=== PATIENT | male | born 1965 | race African-American/Black ===

== ENCOUNTER 2017-09-01 12:16 | Inpatient (IN) | payer OTHER ==
[2017-09-01 13:31] VITALS: BMI 41.8
--- NOTE | 2017-09-01 18:33 | HP ---
CIWA Score - CIWA Score Nausea/Vomitin-Mild Nausea/No Vomiting Muscle Tremors: 2 Anxiety: 2 Agitation: 2 Paroxysmal Sweats: 1-Minimal Palms Moist Orientation: 1-Uncertain about Date Tacttile Disturbances: 0-None Auditory Disturbances: 0-None Visual Disturbances: 0-None Headache: 3-Moderate CIWA-Ar Total Score: 12 Admission ROS S - HPI Chief Complaint: "I feel shaky, irritable, and I got the chills" Xanax withdrawal symptoms Allergies/Adverse Reactions: Allergies Allergy/AdvReac Type Severity Reaction Status Date / Time No Known Allergies Allergy Verified 09/01/17 17:15 History of Present Illness: 52 yo male with hx of xanax dependence is here seeking detox. Currently in in [facility] at [facility] on methadone 90 mg qd, last medicated today. PMHX: DM II on oral agents, hyperlipidemia, HTN, anxiety and insomnia. Longest period of sobriety 16 months. Last detox over 10 yeas ago at [facility]. Denies suicidal / homicidal ideation or suicide attempts. Denies hx of seizures or blackouts. Exam Limitations: No Limitations - Ebola screening Have you traveled outside of the country in the last 21 days: No Have you had contact with anyone from an Ebola affected area: No Have you been sick,other than usual withdrawal symptoms: No Do you have a fever: No - Review of Systems Constitutional: Chills, Loss of Appetite, Changes in sleep EENT: reports: Blurred Vision (needs precription glasses) Respiratory: reports: No Symptoms reported Cardiac: reports: No Symptoms Reported GI: reports: Nausea, Poor Fluid Intake : reports: No Symptoms Reported Musculoskeletal: reports: No Symptoms Reported Integumentary: reports: No Symptoms Reported Neuro: reports: Headache Endocrine: reports: Increased Thirst Hematology: reports: No Symptoms Reported Psychiatric: reports: Orientated x3, Anxious Other Systems: Reviewed and Negative Patient History - Patient Medical History Hx Anemia: No Hx Asthma: No Hx Chronic Obstructive Pulmonary Disease (COPD): No Hx Cancer: No Hx Cardiac Disorders: No Hx Congestive Heart Failure: No Hx Hypertension: Yes Hx Hypercholesterolemia: Yes Hx Pacemaker: No HX Cerebrovascular Accident: No Hx Seizures: No Hx Diabetes: Yes (on Metformin) Hx Gastrointestinal Disorders: No Hx Liver Disease: No Hx Genitourinary Disorders: No Hx Sexually Transmitted Disorders: No Hx Renal Disease (ESRD): No Hx Thyroid Disease: No Hx Human Immunodeficiency Virus (HIV): No (negative, last tested August 2016) Hx Hepatitis C: No Hx Depression: Yes Hx Suicide Attempt: No Hx Bipolar Disorder: No Hx Schizophrenia: No - Patient Surgical History Past Surgical History: No Hx Neurologic Surgery: No Hx Cataract Extraction: No Hx Cardiac Surgery: No Hx Lung Surgery: No Hx Breast Surgery: No Hx Breast Biopsy: No Hx Abdominal Surgery: No Hx Appendectomy: No Hx Cholecystectomy: No Hx Genitourinary Surgery: No Hx Section: No Hx Orthopedic Surgery: No Anesthesia Reaction: No - PPD History Previous Implant?: Yes Documented Results: Negative w/o proof PPD to be Administered?: Yes - Reproductive History Patient is a Female of Child Bearing Age (11 -55 yrs old): No - Smoking Cessation Smoking history: Current every day smoker Have you smoked in the past 12 months: Yes Aproximately how many cigarettes per day: 3 Hx Chewing Tobacco Use: No Initiated information on smoking cessation: Yes 'Breaking Loose' booklet given: 09/01/17 - Substance & Tx. History Hx Alcohol Use: No Hx Substance Use: Yes Substance Use Type: Tranquilizers Hx Substance Use Treatment: Yes ([facility] 10 years ago ) - Substances Abused Alprazolam (Xanax) Route: Oral Frequency: Daily Amount used: 8mg Age of first use: 50 Date of Last Use: 08/31/17 Family Disease History - Family Disease History Family Disease History: Diabetes: Mother (alive, Gallstones), Other: Father ( , [place], alcoholism ), Mother Admission Physical Exam S - Vital Signs Vital Signs: Vital Signs - 24 hr 09/01/17 13:29 Temperature 98.1 F Pulse Rate 81 Respiratory 20 Rate Blood Pressure 131/62 - Physical General Appearance: Yes: Appropriately Dressed, Obese, Anxious HEENTM: Yes: EOMI, Hearing grossly Normal, Normal ENT Inspection, Pharynx Normal , Tm's normal, Rhinorrhea, Other (chelithis) Respiratory: Yes: Lungs Clear, Normal Breath Sounds, No Respiratory Distress, No Accessory Muscle Use Neck: Yes: No masses,lesions,Nodules, Trachea in good position Breast: Yes: Breast Exam Deferred Cardiology: Yes: Regular Rhythm, Regular Rate Abdominal: Yes: Normal Bowel Sounds, Non Tender, Soft, Protuberent Genitourinary: Yes: Within Normal Limits Back: Yes: Normal Inspection Musculoskeletal: Yes: full range of Motion, Gait Steady, Pelvis Stable Extremities: Yes: Normal Capillary Refill, Normal Inspection, Normal Range of Motion, Non-Tender Neurological: Yes: supervisor tumblers II-XII NML intact, Fully Oriented, Alert, Motor Strength 5/5, Depressed Affect Integumentary: Yes: Normal Color, Dry, Warm Lymphatic: Yes: Within Normal Limits - Diagnostic (1) Methadone maintenance therapy patient Current Visit: Yes Status: Acute (2) Hypertension Current Visit: Yes Status: Chronic Qualifiers: Hypertension type: essential hypertension Qualified Code(s): I10 - Essential (primary) hypertension (3) Diabetes mellitus type 2 in obese Current Visit: Yes Status: Chronic (4) Sedative, hypnotic or anxiolytic dependence with withdrawal, unspecified Current Visit: Yes Status: Acute (5) Hyperlipidemia Current Visit: Yes Status: Acute (6) Morbid obesity with BMI of 40.0-44.9, adult Current Visit: Yes Status: Acute (7) Anxious mood Current Visit: Yes Status: Acute (8) Sleep difficulties Current Visit: Yes Status: Acute Cleared for Admission [facility] - Detox or Rehab [facility] Level of Care: Medically Managed Detox Regimen/Protocol: Valium [facility] Breath Alcohol Content Breath Alcohol Content: 0 Urine Drug Screen - Results Drug Screen Negative: No Urine Drug Screen Results: BZO-Benzodiazepines, MTD-Methadone, TCA-Tricyclic Antidepress
[2017-09-01] MEDS ORDERED: MAGNESIUM CITRATE 300 ML BOTTLE PO PRN (18:38)
[2017-09-01] MEDS ORDERED: MAGNESIUM HYDROX 2400MG/30ML ORAL SUSPENSION 30 ML CUP PO PRN (18:38)
[2017-09-01] MEDS ORDERED: NICOTINE POLACRILEX 2 MG GUM BUC PRN (18:38)
[2017-09-01] MEDS ORDERED: ACETAMINOPHEN 325 MG TABLET (FP) PO PRN (18:38)
[2017-09-01] MEDS ORDERED: hydrOXYzine PAMOATE 50 MG CAPSULE (FP) PO PRN (18:38)
[2017-09-01] MEDS ORDERED: guaiFENesin/D-METHORPHAN HB 10 ML UNIT-DOSE CUPS PO PRN (18:38)
[2017-09-01] MEDS ORDERED: MENTHOL/PHENOL 1 EACH UD MM PRN (18:38)
[2017-09-01] MEDS ORDERED: IBUPROFEN 400 MG TABLET (FP) PO PRN (18:38)
[2017-09-01] MEDS ORDERED: diazePAM 5 MG TABLET PO ONE (18:38)
[2017-09-01] MEDS ORDERED: P-EPHED 60MG/TRIPROLIDI 2.5MG TABLET PO PRN (18:38)
[2017-09-01] MEDS ORDERED: PATIENT'S OWN MEDICATION (NON-FORMULARY) (Atorvastatin Ca [Lipitor] 40 MG) PO SCH (22:00)
[2017-09-01] MEDS ORDERED: MELATONIN 5 MG TABLETS PO PRN (22:00)
[2017-09-01] MEDS: diazePAM 5 MG TABLET PO SCH (22:37)
[2017-09-01] MEDS: THIAMINE HCL 100 MG TABLET (FP) PO SCH (22:37)
[2017-09-01 23:11] LABS: URINE APPEARANCE CLEAR; URINE BILIRUBIN NEGATIVE (<2.0 mg/dL); URINE BLOOD NEGATIVE (NEGATIVE); URINE COLOR YELLOW; URINE GLUCOSE (UA) NEGATIVE (NEGATIVE); URINE KETONE NEGATIVE (NEGATIVE); URINE LEUK ESTERASE NEGATIVE (NEGATIVE); URINE NITRITE NEGATIVE (NEGATIVE); URINE PROTEIN NEGATIVE (NEGATIVE); URINE UROBILINOGEN NEGATIVE mg/dL (0.2-1.0)
[2017-09-02] MEDS: diazePAM 5 MG TABLET PO SCH ×3 (05:39→22:16)
[2017-09-02] MEDS: INSULIN SLIDING SCALE (NOVOLOG) 1 VIAL SQ SCH ×2 (07:51→16:22)
[2017-09-02] MEDS ORDERED: METHADONE HCL 10 MG TABLET PO SCH (09:00)
[2017-09-02] MEDS: PRENATAL VITAMINS W/ FOLIC ACID TABLET (FP) PO SCH (09:52)
[2017-09-02] MEDS: ASPIRIN 81 MG CHEWABLE TABLETS PO SCH (09:53)
--- NOTE | 2017-09-02 10:25 | CONSULT ---
[facility] Psychiatric Consult - Data Date of interview: 09/02/17 Admission source: [facility] Identifying data: First admission to [facility] for this 52 y/o AA male seeking detox treatment on for xanax and opioid dependence.Patient is single,a father of three,domiciled,unemployed and supported on Public Assistance. Substance Abuse History: Confirmed by patient in this interview.Details in current [facility] report : Smoking history: Current every day smoker. Have you smoked in the past 12 months: Yes. Aproximately how many cigarettes per day: 3. Hx Chewing Tobacco Use: No. Initiated information on smoking cessation: Yes. 'Breaking Loose' booklet given: 09/01/17. - Substance & Tx. History. Hx Alcohol Use: No. Hx Substance Use: Yes. Substance Use Type: Tranquilizers. Hx Substance Use Treatment: Yes ([facility] 10 years ago ). - Substances Abused. Alprazolam (Xanax). Route: Oral. Frequency: Daily. Amount used: 8mg. Age of first use: 50. Date of Last Use: 08/31/17 Medical History: GERD,diabetes mellitushypercholesterolemia and hypertension. Psychiatric History: Patient denies history of psychiatric illness.No reported history of suicide attempts. Physical/Sexual Abuse/Trauma History: Patient denies. Additional Comment: Urine Drug Screen Results: BZO-Benzodiazepines, MTD- Methadone, TCA-Tricyclic Antidepressant.Noted. Mental Status Exam - Mental Status Exam Alert and Oriented to: Time, Place, Person Cognitive Function: Good Patient Appearance: Well Groomed Mood: Hopeful Affect: Appropriate Speech Pattern: Clear, Appropriate Voice Loudness: Normal Thought Process: Intact, Goal Oriented Thought Disorder: Not Present Hallucinations: Denies Suicidal Ideation: Denies Homicidal Ideation: Denies Insight/Judgement: Poor Sleep: Poorly, Difficulty falling asleep Appetite: Good Muscle strength/Tone: Normal Gait/Station: Normal Psychiatric Findings - Problem List ([place] 1, 2,3) (1) Sedative, hypnotic or anxiolytic dependence with withdrawal, unspecified Current Visit: Yes Status: Acute (2) Opioid dependence on agonist therapy Current Visit: Yes Status: Acute (3) Nicotine dependence Current Visit: Yes Status: Acute - Initial Treatment Plan Initial Treatment Plan: Psychoeducation.Detoxification in progress.Sleep hygiene.Ambien 5 mg po hs prn.Side effects/benefits discussed with patient.Agrees with careplan.Observation.
[2017-09-02 11:29] LABS: HEMATOCRIT 38.3 % (35.4-49); HEMOGLOBIN 12.8 GM/dL (11.7-16.9); MCH 30.8 pg (25.7-33.7); MCHC 33.5 g/dl (32.0-35.9); MEAN CELL VOLUME 91.8 fl (80-96); MEAN PLT VOLUME 8.6 fl (7.5-11.1); PLATELET COUNT 290 K/MM3 (134-434); RBC 4.17 M/mm3 (4.00-5.60); RDW 15.3 % (11.9-15.9)
[2017-09-02] MEDS: diazePAM 5 MG TABLET PO PRN (11:35)
[2017-09-02 12:15] LABS: ALBUMIN 3.7 g/dl (3.4-5.0); ANION GAP 3 (8-16); BLOOD UREA NITROGEN 19 mg/dL (7-18); CALCIUM 9.3 mg/dL (8.5-10.1); CHLORIDE 98 mmol/L (98-107); CO2 34 mmol/L (21-32); GLUCOSE,RANDOM 156 mg/dL (74-106); POTASSIUM 3.7 mmol/L (3.5-5.1); SGOT/AST 14 U/L (15-37); SGPT/ALT 28 U/L (12-78); SODIUM 135 mmol/L (136-145)
[2017-09-02 12:17] LABS: ALK PHOS 100 U/L (45-117); BILIRUBIN,TOTAL 0.4 mg/dL (0.2-1.0); TOT PROT 7.9 g/dl (6.4-8.2)
[2017-09-02] MEDS: LISINOPRIL 5 MG TABLET (FP) PO SCH (13:58)
[2017-09-02] MEDS: TOLNAFTATE 1% CREAM 15 GM TUBE TP SCH ×2 (13:58→22:17)
[2017-09-02] MEDS: metFORMIN HCL 500 MG TABLET (FP) PO SCH ×2 (16:20→16:21)
[2017-09-02] MEDS: MAG HYDROX/AL HYDROX/SIMETH 30 ML UNIT-DOSE CUP PO PRN (16:43)
--- NOTE | 2017-09-02 17:08 | PN ---
[facility] CIWA - CIWA Score Nausea/Vomitin-No Nausea/No Vomiting Muscle Tremors: 2 Anxiety: 4-Mod. Anxious/Guarded Agitation: 3 Paroxysmal Sweats: 3 Orientation: 0-Oriented Tacttile Disturbances: 2-Mild Itch/Numbness/Burn Auditory Disturbances: 0-None Visual Disturbances: 0-None Headache: 0-None Present CIWA-Ar Total Score: 14 S Progress Note (SOAP) Subjective: Anxious, Sweating, Stomach Cramping, Tremors. Objective: PATIENT A & O X 3, OBSERVED AMBULATING ON UNIT. NO ACUTE DISTRESS. 09/02/17 17:09 Vital Signs Temperature 97.2 F L 09/02/17 14:13 Pulse Rate 69 09/02/17 14:13 Respiratory Rate 18 09/02/17 14:13 Blood Pressure 106/76 09/02/17 14:13 O2 Sat by Pulse Oximetry (%) Laboratory Tests 09/01/17 09/01/17 09/02/17 17:20 18:45 05:40 WBC RBC Hgb Hct MCV MCH MCHC RDW Plt Count MPV Sodium Potassium Chloride Carbon Dioxide Anion Gap BUN Creatinine Creat Clearance w eGFR POC Glucometer 126 108 Random Glucose Calcium Total Bilirubin AST ALT Alkaline Phosphatase Total Protein Albumin Urine Color Yellow Urine Appearance Clear Urine pH 5.0 Ur Specific [place] 1.023 Urine Protein Negative Urine Glucose (UA) Negative Urine Ketones Negative Urine Blood Negative Urine Nitrite Negative Urine Bilirubin Negative Urine Urobilinogen Negative Ur Leukocyte Esterase Negative RPR Titer HIV 1&2 Antibody Screen HIV P24 Antigen 09/02/17 09/02/17 09/02/17 08:00 08:00 08:00 WBC 9.0 RBC 4.17 Hgb 12.8 Hct 38.3 MCV 91.8 MCH 30.8 MCHC 33.5 RDW 15.3 Plt Count 290 MPV 8.6 Sodium 135 L Potassium 3.7 Chloride 98 Carbon Dioxide 34 H Anion Gap 3 L BUN 19 H Creatinine 1.0 Creat Clearance w eGFR > 60 POC Glucometer Random Glucose 156 H D Calcium 9.3 Total Bilirubin 0.4 D AST 14 L D ALT 28 Alkaline Phosphatase 100 Total Protein 7.9 Albumin 3.7 Urine Color Urine Appearance Urine pH Ur Specific [place] Urine Protein Urine Glucose (UA) Urine Ketones Urine Blood Urine Nitrite Urine Bilirubin Urine Urobilinogen Ur Leukocyte Esterase RPR Titer Nonreactive HIV 1&2 Antibody Screen HIV P24 Antigen 09/02/17 09/02/17 08:00 16:17 WBC RBC Hgb Hct MCV MCH MCHC RDW Plt Count MPV Sodium Potassium Chloride Carbon Dioxide Anion Gap BUN Creatinine Creat Clearance w eGFR POC Glucometer 143 Random Glucose Calcium Total Bilirubin AST ALT Alkaline Phosphatase Total Protein Albumin Urine Color Urine Appearance Urine pH Ur Specific [place] Urine Protein Urine Glucose (UA) Urine Ketones Urine Blood Urine Nitrite Urine Bilirubin Urine Urobilinogen Ur Leukocyte Esterase RPR Titer HIV 1&2 Antibody Screen Negative HIV P24 Antigen Negative LABS NOTED. Assessment: 09/02/17 17:09 WITHDRAWAL SYMPTOMS. Plan: CONTINUE DETOX. INCREASE DAILY PO FLUID INTAKE.
--- NOTE | 2017-09-02 18:27 | EKG ---
Test Reason : Blood Pressure : / mmHG Vent. Rate : 072 BPM Atrial Rate : 072 BPM P-R Int : 156 ms QRS Dur : 088 ms QT Int : 484 ms P-R-T Axes : 073 057 026 degrees QTc Int : 529 ms NORMAL SINUS RHYTHM PROLONGED QT NONSPECIFIC ST ABNORMALITY ABNORMAL ECG NO PREVIOUS ECGS AVAILABLE Confirmed by MD YONIS, ERIKA ([id number]) on 09/02/2017 6:26:29 PM Referred By: Confirmed By:ERIKA SOMERS MD
[2017-09-02] MEDS: THIAMINE HCL 100 MG TABLET (FP) PO SCH (22:16)
[2017-09-02] MEDS: ZOLPIDEM TARTRATE 5 MG TABLET PO PRN (22:16)
[2017-09-02] MEDS: ATORVASTATIN CA 40 MG TABLET (FP) PO SCH (22:17)
[2017-09-03] MEDS ORDERED: METHADONE HCL 40 MG DISPERSABLE TABLET ONE (05:15)
[2017-09-03] MEDS ORDERED: METHADONE HCL 10 MG TABLET ONE (05:15)
[2017-09-03] MEDS: diazePAM 5 MG TABLET PO PRN ×2 (05:40→16:32)
[2017-09-03] MEDS: METHADONE 80 MG, METHADONE 10 MG PO SCH (05:41)
[2017-09-03] MEDS: INSULIN SLIDING SCALE (NOVOLOG) 1 VIAL SQ SCH ×2 (06:22→16:33)
[2017-09-03] MEDS: metFORMIN HCL 500 MG TABLET (FP) PO SCH ×2 (07:54→16:32)
[2017-09-03] MEDS: ASPIRIN 81 MG CHEWABLE TABLETS PO SCH (10:06)
[2017-09-03] MEDS: PRENATAL VITAMINS W/ FOLIC ACID TABLET (FP) PO SCH (10:06)
[2017-09-03] MEDS: TOLNAFTATE 1% CREAM 15 GM TUBE TP SCH ×2 (10:06→22:00)
[2017-09-03] MEDS: LISINOPRIL 5 MG TABLET (FP) PO SCH (10:07)
[2017-09-03] MEDS: diazePAM 5 MG TABLET PO SCH ×2 (10:07→22:00)
--- NOTE | 2017-09-03 11:38 | PN ---
S CIWA - CIWA Score Nausea/Vomitin-No Nausea/No Vomiting Muscle Tremors: 3 Anxiety: 4-Mod. Anxious/Guarded Agitation: 4-Moderately Restless Paroxysmal Sweats: 3 Orientation: 0-Oriented Tacttile Disturbances: 0-None Auditory Disturbances: 0-None Visual Disturbances: 0-None Headache: 0-None Present CIWA-Ar Total Score: 14 BHS Progress Note (SOAP) Subjective: agitation sweats shakes irritable Objective: 09/03/17 11:37 Vital Signs Temperature 97.2 F L 09/03/17 10:59 Pulse Rate 70 09/03/17 10:59 Respiratory Rate 18 09/03/17 10:59 Blood Pressure 110/57 09/03/17 10:59 O2 Sat by Pulse Oximetry (%) Laboratory Tests 09/01/17 09/01/17 09/02/17 17:20 18:45 05:40 WBC RBC Hgb Hct MCV MCH MCHC RDW Plt Count MPV Sodium Potassium Chloride Carbon Dioxide Anion Gap BUN Creatinine Creat Clearance w eGFR POC Glucometer 126 108 Random Glucose Calcium Total Bilirubin AST ALT Alkaline Phosphatase Total Protein Albumin Urine Color Yellow Urine Appearance Clear Urine pH 5.0 Ur Specific [place] 1.023 Urine Protein Negative Urine Glucose (UA) Negative Urine Ketones Negative Urine Blood Negative Urine Nitrite Negative Urine Bilirubin Negative Urine Urobilinogen Negative Ur Leukocyte Esterase Negative RPR Titer HIV 1&2 Antibody Screen HIV P24 Antigen 09/02/17 09/02/17 09/02/17 08:00 08:00 08:00 WBC 9.0 RBC 4.17 Hgb 12.8 Hct 38.3 MCV 91.8 MCH 30.8 MCHC 33.5 RDW 15.3 Plt Count 290 MPV 8.6 Sodium 135 L Potassium 3.7 Chloride 98 Carbon Dioxide 34 H Anion Gap 3 L BUN 19 H Creatinine 1.0 Creat Clearance w eGFR > 60 POC Glucometer Random Glucose 156 H D Calcium 9.3 Total Bilirubin 0.4 D AST 14 L D ALT 28 Alkaline Phosphatase 100 Total Protein 7.9 Albumin 3.7 Urine Color Urine Appearance Urine pH Ur Specific [place] Urine Protein Urine Glucose (UA) Urine Ketones Urine Blood Urine Nitrite Urine Bilirubin Urine Urobilinogen Ur Leukocyte Esterase RPR Titer Nonreactive HIV 1&2 Antibody Screen HIV P24 Antigen 03/31/18 03/31/18 04/01/18 08:00 16:17 05:40 WBC RBC Hgb Hct MCV MCH MCHC RDW Plt Count MPV Sodium Potassium Chloride Carbon Dioxide Anion Gap BUN Creatinine Creat Clearance w eGFR POC Glucometer 143 121 Random Glucose Calcium Total Bilirubin AST ALT Alkaline Phosphatase Total Protein Albumin Urine Color Urine Appearance Urine pH Ur Specific [place] Urine Protein Urine Glucose (UA) Urine Ketones Urine Blood Urine Nitrite Urine Bilirubin Urine Urobilinogen Ur Leukocyte Esterase RPR Titer HIV 1&2 Antibody Screen Negative HIV P24 Antigen Negative aaox3 ambulating no acute distress Assessment: 09/03/17 11:38 withdrawal sx Plan: continue detox increase fluids
[2017-09-03] MEDS ORDERED: hydrOXYzine PAMOATE 50 MG CAPSULE (FP) PO PRN (11:39)
[2017-09-03] MEDS ORDERED: AMMONIUM LACTATE 12% LOTION 225 GM BOTTLE TP PRN (14:16)
--- NOTE | 2017-09-03 16:25 | EKG ---
Test Reason : Blood Pressure : / mmHG Vent. Rate : 066 BPM Atrial Rate : 066 BPM P-R Int : 162 ms QRS Dur : 086 ms QT Int : 440 ms P-R-T Axes : 064 056 021 degrees QTc Int : 461 ms NORMAL SINUS RHYTHM NORMAL ECG WHEN COMPARED WITH ECG OF 01-SEP-2017 20:22, QT HAS SHORTENED Confirmed by MD YONIS, ERIKA ([id number]) on 09/03/2017 4:24:48 PM Referred By: Confirmed By:ERIKA SOMERS MD
[2017-09-03] MEDS: THIAMINE HCL 100 MG TABLET (FP) PO SCH (22:00)
[2017-09-03] MEDS: ATORVASTATIN CA 40 MG TABLET (FP) PO SCH (22:00)
[2017-09-03] MEDS: ZOLPIDEM TARTRATE 5 MG TABLET PO PRN (22:00)
[2017-09-04] MEDS ORDERED: METHADONE HCL 10 MG TABLET ONE (04:31)
[2017-09-04] MEDS ORDERED: METHADONE HCL 40 MG DISPERSABLE TABLET ONE (04:32)
[2017-09-04] MEDS: METHADONE 80 MG, METHADONE 10 MG PO SCH (06:01)
[2017-09-04] MEDS: diazePAM 5 MG TABLET PO PRN ×2 (06:01→12:32)
[2017-09-04] MEDS: metFORMIN HCL 500 MG TABLET (FP) PO SCH ×2 (06:01→17:12)
[2017-09-04] MEDS: INSULIN SLIDING SCALE (NOVOLOG) 1 VIAL SQ SCH ×2 (07:03→17:39)
[2017-09-04] MEDS: TOLNAFTATE 1% CREAM 15 GM TUBE TP SCH ×2 (10:04→22:13)
[2017-09-04] MEDS: ASPIRIN 81 MG CHEWABLE TABLETS PO SCH (10:04)
[2017-09-04] MEDS: PRENATAL VITAMINS W/ FOLIC ACID TABLET (FP) PO SCH (10:04)
[2017-09-04] MEDS: RANITIDINE HCL 150 MG TABLET (FP) PO SCH (10:05)
[2017-09-04] MEDS: diazePAM 5 MG TABLET PO SCH ×2 (10:05→22:13)
[2017-09-04] MEDS: BACITRACIN 0.9 GM PACKET TP SCH ×2 (10:05→22:12)
[2017-09-04] MEDS: LISINOPRIL 5 MG TABLET (FP) PO SCH (10:05)
--- NOTE | 2017-09-04 16:04 | PN ---
[facility] Progress Note (SOAP) Subjective: Anxious, Body Aches. Objective: PATIENT A & O X 3, OBSERVED AMBULATING ON UNIT. NO ACUTE DISTRESS. 09/04/17 16:03 Vital Signs Temperature 97.9 F 09/04/17 13:16 Pulse Rate 64 09/04/17 13:16 Respiratory Rate 18 09/04/17 13:16 Blood Pressure 113/74 09/04/17 13:16 O2 Sat by Pulse Oximetry (%) Laboratory Tests 09/01/17 09/01/17 09/02/17 17:20 18:45 05:40 WBC RBC Hgb Hct MCV MCH MCHC RDW Plt Count MPV Sodium Potassium Chloride Carbon Dioxide Anion Gap BUN Creatinine Creat Clearance w eGFR POC Glucometer 126 108 Random Glucose Calcium Total Bilirubin AST ALT Alkaline Phosphatase Total Protein Albumin Urine Color Yellow Urine Appearance Clear Urine pH 5.0 Ur Specific [place] 1.023 Urine Protein Negative Urine Glucose (UA) Negative Urine Ketones Negative Urine Blood Negative Urine Nitrite Negative Urine Bilirubin Negative Urine Urobilinogen Negative Ur Leukocyte Esterase Negative RPR Titer HIV 1&2 Antibody Screen HIV P24 Antigen 09/02/17 09/02/17 09/02/17 08:00 08:00 08:00 WBC 9.0 RBC 4.17 Hgb 12.8 Hct 38.3 MCV 91.8 MCH 30.8 MCHC 33.5 RDW 15.3 Plt Count 290 MPV 8.6 Sodium 135 L Potassium 3.7 Chloride 98 Carbon Dioxide 34 H Anion Gap 3 L BUN 19 H Creatinine 1.0 Creat Clearance w eGFR > 60 POC Glucometer Random Glucose 156 H D Calcium 9.3 Total Bilirubin 0.4 D AST 14 L D ALT 28 Alkaline Phosphatase 100 Total Protein 7.9 Albumin 3.7 Urine Color Urine Appearance Urine pH Ur Specific [place] Urine Protein Urine Glucose (UA) Urine Ketones Urine Blood Urine Nitrite Urine Bilirubin Urine Urobilinogen Ur Leukocyte Esterase RPR Titer Nonreactive HIV 1&2 Antibody Screen HIV P24 Antigen 09/02/17 09/02/17 09/03/17 08:00 16:17 05:40 WBC RBC Hgb Hct MCV MCH MCHC RDW Plt Count MPV Sodium Potassium Chloride Carbon Dioxide Anion Gap BUN Creatinine Creat Clearance w eGFR POC Glucometer 143 121 Random Glucose Calcium Total Bilirubin AST ALT Alkaline Phosphatase Total Protein Albumin Urine Color Urine Appearance Urine pH Ur Specific [place] Urine Protein Urine Glucose (UA) Urine Ketones Urine Blood Urine Nitrite Urine Bilirubin Urine Urobilinogen Ur Leukocyte Esterase RPR Titer HIV 1&2 Antibody Screen Negative HIV P24 Antigen Negative 09/03/17 09/04/17 16:23 06:00 WBC RBC Hgb Hct MCV MCH MCHC RDW Plt Count MPV Sodium Potassium Chloride Carbon Dioxide Anion Gap BUN Creatinine Creat Clearance w eGFR POC Glucometer 138 145 Random Glucose Calcium Total Bilirubin AST ALT Alkaline Phosphatase Total Protein Albumin Urine Color Urine Appearance Urine pH Ur Specific [place] Urine Protein Urine Glucose (UA) Urine Ketones Urine Blood Urine Nitrite Urine Bilirubin Urine Urobilinogen Ur Leukocyte Esterase RPR Titer HIV 1&2 Antibody Screen HIV P24 Antigen LABS NOTED. Assessment: 09/04/17 16:03 WITHDRAWAL SYMPTOMS. Plan: CONTINUE DETOX.
[2017-09-04] MEDS: LOPERAMIDE HCL 2 MG CAPSULE PO PRN ×2 (17:12→23:12)
[2017-09-04] MEDS: MAG HYDROX/AL HYDROX/SIMETH 30 ML UNIT-DOSE CUP PO PRN (19:23)
[2017-09-04] MEDS: ZOLPIDEM TARTRATE 5 MG TABLET PO PRN (22:12)
[2017-09-04] MEDS: ATORVASTATIN CA 40 MG TABLET (FP) PO SCH (22:12)
[2017-09-04] MEDS: THIAMINE HCL 100 MG TABLET (FP) PO SCH (22:12)
[2017-09-05] MEDS ORDERED: METHADONE HCL 10 MG TABLET ONE (04:17)
[2017-09-05] MEDS ORDERED: METHADONE HCL 40 MG DISPERSABLE TABLET ONE (04:18)
[2017-09-05] MEDS: METHADONE 80 MG, METHADONE 10 MG PO SCH (05:12)
[2017-09-05] MEDS: MAG HYDROX/AL HYDROX/SIMETH 30 ML UNIT-DOSE CUP PO PRN (05:16)
[2017-09-05] MEDS: metFORMIN HCL 500 MG TABLET (FP) PO SCH (06:17)
[2017-09-05] MEDS: INSULIN SLIDING SCALE (NOVOLOG) 1 VIAL SQ SCH (07:45)
[2017-09-05] MEDS: LOPERAMIDE HCL 2 MG CAPSULE PO PRN (08:12)
[2017-09-05 09:09] VITALS: BP 125/85; PULSE 66; TEMP 95.3
[2017-09-05] MEDS: PRENATAL VITAMINS W/ FOLIC ACID TABLET (FP) PO SCH (09:19)
[2017-09-05] MEDS: LISINOPRIL 5 MG TABLET (FP) PO SCH (09:19)
[2017-09-05] MEDS: RANITIDINE HCL 150 MG TABLET (FP) PO SCH (09:19)
[2017-09-05] MEDS: BACITRACIN 0.9 GM PACKET TP SCH (09:20)
[2017-09-05] MEDS: TOLNAFTATE 1% CREAM 15 GM TUBE TP SCH (09:20)
[2017-09-05] MEDS: ASPIRIN 81 MG CHEWABLE TABLETS PO SCH (09:20)
[2017-09-05] MEDS ORDERED: DIPHENOXYLATE 2.5/ATROPINE.025 1 COMBO TABLET PO ONE (09:30)
[2017-09-05] MEDS ORDERED: diazePAM 5 MG TABLET PO SCH (10:00)
--- NOTE | 2017-09-05 12:15 | DS ---
[facility] Detox Discharge Summary Admission Date: 09/01/17 Discharge Date: 09/05/17 - History Present History: Sedative Dependence, MMTP Additional Comments: DETOX COMPLETED. ALERT OX 3. NAD. PT TO FOLLOW UP WITH PMD [place] [address] [place] [address] FOR MEDICAL MANAGEMENT. Pertinent Past History: PLEASE SEE DX BELOW - Physical Exam Results Vital Signs: Vital Signs Temperature 95.3 F L 09/05/17 09:09 Pulse Rate 66 09/05/17 09:09 Respiratory Rate 18 09/05/17 09:09 Blood Pressure 125/85 09/05/17 09:09 O2 Sat by Pulse Oximetry (%) Pertinent Admission Physical Exam Findings: WITHDRAWAL SX Laboratory Last Values WBC 9.0 K/mm3 (4.0-10.0) 09/02/17 08:00 RBC 4.17 M/mm3 (4.00-5.60) 09/02/17 08:00 Hgb 12.8 GM/dL (11.7-16.9) 09/02/17 08:00 Hct 38.3 % (35.4-49) 09/02/17 08:00 MCV 91.8 fl (80-96) 09/02/17 08:00 MCH 30.8 pg (25.7-33.7) 09/02/17 08:00 MCHC 33.5 g/dl (32.0-35.9) 09/02/17 08:00 RDW 15.3 % (11.9-15.9) 09/02/17 08:00 Plt Count 290 K/MM3 (134-434) 09/02/17 08:00 MPV 8.6 fl (7.5-11.1) 09/02/17 08:00 Sodium 135 mmol/L (136-145) L 09/02/17 08:00 Potassium 3.7 mmol/L (3.5-5.1) 09/02/17 08:00 Chloride 98 mmol/L (98-107) 09/02/17 08:00 Carbon Dioxide 34 mmol/L (21-32) H 09/02/17 08:00 Anion Gap 3 (8-16) L 09/02/17 08:00 BUN 19 mg/dL (7-18) H 09/02/17 08:00 Creatinine 1.0 mg/dL (0.7-1.3) 09/02/17 08:00 Creat Clearance w eGFR > 60 (>60) 09/02/17 08:00 POC Glucometer 139 UNITS (80-120) 09/05/17 05:11 Random Glucose 156 mg/dL (74-106) H D 09/02/17 08:00 Calcium 9.3 mg/dL (8.5-10.1) 09/02/17 08:00 Total Bilirubin 0.4 mg/dL (0.2-1.0) D 09/02/17 08:00 AST 14 U/L (15-37) L D 09/02/17 08:00 ALT 28 U/L (12-78) 09/02/17 08:00 Alkaline Phosphatase 100 U/L (45-117) 09/02/17 08:00 Total Protein 7.9 g/dl (6.4-8.2) 09/02/17 08:00 Albumin 3.7 g/dl (3.4-5.0) 09/02/17 08:00 Urine Color Yellow 09/01/17 18:45 Urine Appearance Clear 09/01/17 18:45 Urine pH 5.0 (5.0-8.0) 09/01/17 18:45 Ur Specific [place] 1.023 (1.001-1.035) 09/01/17 18:45 Urine Protein Negative (NEGATIVE) 09/01/17 18:45 Urine Glucose (UA) Negative (NEGATIVE) 09/01/17 18:45 Urine Ketones Negative (NEGATIVE) 09/01/17 18:45 Urine Blood Negative (NEGATIVE) 09/01/17 18:45 Urine Nitrite Negative (NEGATIVE) 09/01/17 18:45 Urine Bilirubin Negative (<2.0 mg/dL) 09/01/17 18:45 Urine Urobilinogen Negative mg/dL (0.2-1.0) 09/01/17 18:45 Ur Leukocyte Esterase Negative (NEGATIVE) 09/01/17 18:45 RPR Titer Nonreactive (NONREACTIVE) 09/02/17 08:00 HIV 1&2 Antibody Screen Negative 09/02/17 08:00 HIV P24 Antigen Negative 09/02/17 08:00 - Treatment Hospital Course: Detox Protocol Followed, Detoxed Safely, Responded well, Discharged Condition Good, Rehab Referral Accepted Patient has Accepted a Rehab Referral to: [facility] - Medication Discharge Medications: Ambulatory Orders Aspirin [ASA -] 81 mg PO DAILY 09/01/17 Atorvastatin Ca [Lipitor] 40 mg PO HS 09/01/17 Lisinopril 2.5 mg PO DAILY 09/01/17 Metformin HCl 500 mg PO BID 09/01/17 - Diagnosis (1) Hyperlipidemia Status: Chronic Qualifiers: Hyperlipidemia type: unspecified Qualified Code(s): E78.5 - Hyperlipidemia , unspecified (2) Methadone maintenance therapy patient Status: Chronic (3) Morbid obesity with BMI of 40.0-44.9, adult Status: Chronic (4) Nicotine dependence Status: Acute Qualifiers: Nicotine product type: cigarettes Substance use status: in withdrawal Qualified Code(s): F17.213 - Nicotine dependence, cigarettes, with withdrawal (5) Sedative, hypnotic or anxiolytic dependence with withdrawal, unspecified Status: Acute - AMA Did Patient Leave Against Medical Advice: No
== END 2017-09-05 11:04 | disposition home or self-care (01) | DRG 773 ==
LOC: YASAS 12:16 → Y3N 17:52
PROVIDERS: ADMIT Internal Medicine; ATTEND Internal Medicine
PROC: HZ2ZZZZ Detoxification Services for Substance Abuse Treatment (ICD-10-PCS; principal; 2017-09-01)
DX: F11.20 Opioid dependence, uncomplicated (principal); F13.230 Sedative, hypnotic or anxiolytic dependence with withdrawal, uncomplicated; F17.210 Nicotine dependence, cigarettes, uncomplicated; F32.9 Major depressive disorder, single episode, unspecified; G47.9 Sleep disorder, unspecified; E78.5 Hyperlipidemia, unspecified; E11.9 Type 2 diabetes mellitus without complications; Z79.84 Long term (current) use of oral hypoglycemic drugs; E66.01 Morbid (severe) obesity due to excess calories; Z68.41 Body mass index [BMI] 40.0-44.9, adult
CPT/HCPCS: 36415; 80053; 81003; 82962; 85027; 86593; 87389; 93005; 93010

== ENCOUNTER 2018-09-21 11:20 | Inpatient (IN) | payer OTHER ==
[2018-09-21 12:08] VITALS: BMI 41.3
--- NOTE | 2018-09-21 13:20 | HP ---
CIWA Score Nausea/Vomitin Muscle Tremors: 2 Anxiety: 2 Agitation: 2 Paroxysmal Sweats: 1-Minimal Palms Moist Orientation: 0-Oriented Tacttile Disturbances: 1-Very Mild Itch/Numbness Auditory Disturbances: 1-Very Mild Visual Disturbances: 0-None Headache: 2-Mild CIWA-Ar Total Score: 13 - Admission Criteria OASAS Guidelines: Admission for Medically Managed Detox: Requires at least one of the followin. CIWA greater than 12 2. Seizures within the past 24 hours 3. Delirium tremens within the past 24 hours 4. Hallucinations within the past 24 hours 5. Acute intervention needed for co occurring medical disorder 6. Acute intervention needed for co occurring psychiatric disorder 7. Severe withdrawal that cannot be handled at a lower level of care (continued vomiting, continued diarrhea, abnormal vital signs) requiring intravenous medication and/or fluids 8. Admission ROS [facility] - HPI Chief Complaint: i need help to stop using xanax and klonopin Allergies/Adverse Reactions: Allergies Allergy/AdvReac Type Severity Reaction Status Date / Time No Known Allergies Allergy Verified 09/21/18 11:58 History of Present Illness: this 53 years old male with xanax,klonopin dependence,seeking detox,withdrawal symptom, fail out patient program had previous admission before,last treatment 09/01/17 to 09/05/17 [facility] type 2 dm on metformin hypertension on med nicotine dependence 1 pack/day,requesting gum insomnia longest sobriety 2 years Exam Limitations: No Limitations - Ebola screening Have you traveled outside of the country in the last 21 days: No (N) Have you had contact with anyone from an Ebola affected area: No Do you have a fever: No - Review of Systems Constitutional: Loss of Appetite, Night Sweats, Changes in sleep, Weakness EENT: reports: Nose Congestion Respiratory: reports: No Symptoms reported Cardiac: reports: No Symptoms Reported GI: reports: Nausea, Vomiting, Abdominal cramping Musculoskeletal: reports: Back Pain, Muscle Pain Integumentary: reports: Dryness Endocrine: reports: No Symptoms Reported, Other (type 2 dm) Hematology: reports: No Symptoms Reported Psychiatric: reports: No Sypmtoms Reported, Judgement Intact, Mood/Affect Appropiate, Orientated x3 Other Systems: Reviewed and Negative Patient History - Patient Medical History Hx Anemia: No Hx Asthma: No Hx Chronic Obstructive Pulmonary Disease (COPD): No Hx Cancer: No Hx Cardiac Disorders: No Hx Congestive Heart Failure: No Hx Hypertension: Yes (on med) Hx Hypercholesterolemia: Yes Hx Pacemaker: No HX Cerebrovascular Accident: No Hx Seizures: No Hx Diabetes: Yes (on Metformin) Hx Gastrointestinal Disorders: No Hx Liver Disease: No Hx Genitourinary Disorders: No Hx Sexually Transmitted Disorders: No Hx Renal Disease (ESRD): No Hx Thyroid Disease: No Hx Human Immunodeficiency Virus (HIV): No (negative, last tested August 2016) Hx Hepatitis C: No Hx Depression: Yes (no med) Hx Suicide Attempt: No Hx Bipolar Disorder: No Hx Schizophrenia: No Other Medical History: no sucidal,no homicidal - Patient Surgical History Past Surgical History: No Hx Neurologic Surgery: No Hx Cataract Extraction: No Hx Cardiac Surgery: No Hx Lung Surgery: No Hx Breast Surgery: No Hx Breast Biopsy: No Hx Abdominal Surgery: No Hx Appendectomy: No Hx Cholecystectomy: No Hx Genitourinary Surgery: No Hx Section: No Hx Orthopedic Surgery: No Anesthesia Reaction: No - PPD History Previous Implant?: Yes Documented Results: Negative w/o proof Implanted On Prior R Admission?: Yes Date: 09/03/17 PPD to be Administered?: Yes - Smoking Cessation Smoking history: Current every day smoker Have you smoked in the past 12 months: Yes Aproximately how many cigarettes per day: 20 Hx Chewing Tobacco Use: No Initiated information on smoking cessation: Yes 'Breaking Loose' booklet given: 09/21/18 - Substance & Tx. History Hx Alcohol Use: No Hx Substance Use: Yes Substance Use Type: Tranquilizers Hx Substance Use Treatment: Yes ([facility] 09/01/17 to 09/05/17) - Substances abused Alprazolam (Xanax) Substance route: Oral Frequency: Daily Amount used: 2-3/2MG Age of first use: 49 Date of last use: 09/21/18 Benzodiazepine (Klonopin) Substance route: Oral Frequency: Daily Amount used: 2-3 2MG Age of first use: 49 Date of last use: 09/21/18 Family Disease History - Family Disease History Family Disease History: Diabetes: Mother (alive, Gallstones), Other: Father ( , OR, alcoholism ), Mother Admission Physical Exam [facility] - Vital Signs Vital Signs: Vital Signs - 24 hr 09/21/18 09/21/18 11:59 12:32 Temperature 98.5 F 98.5 F Pulse Rate 71 71 Respiratory 18 18 Rate Blood Pressure 126/79 126/79 - Physical General Appearance: Yes: Moderate Distress, Tremorous, Irritable, Sweating, Anxious HEENTM: Yes: Normal ENT Inspection, JERED, Pharynx Normal Respiratory: Yes: Lungs Clear, Normal Breath Sounds, No Respiratory Distress Neck: Yes: Within Normal Limits, Supple, Trachea in good position Breast: Yes: Within Normal Limits Cardiology: Yes: Within Normal Limits, Regular Rhythm, Regular Rate, S1, S2 Abdominal: Yes: Within Normal Limits, Normal Bowel Sounds, Non Tender, Flat, Soft Genitourinary: Yes: Within Normal Limits Back: Yes: Muscle Spasm Musculoskeletal: Yes: full range of Motion, Back pain, Muscle Pain Extremities: Yes: Tremors Neurological: Yes: barrel marker II-XII NML intact, Fully Oriented, Alert, Motor Strength 5/5 Integumentary: Yes: Dry Lymphatic: Yes: Within Normal Limits - Diagnostic (1) Sedative, hypnotic or anxiolytic dependence with withdrawal, unspecified Current Visit: No Status: Acute (2) Diabetes mellitus type 2 in obese Current Visit: No Status: Chronic (3) Hyperlipidemia Current Visit: No Status: Chronic Qualifiers: Hyperlipidemia type: unspecified Qualified Code(s): E78.5 - Hyperlipidemia , unspecified (4) Hypertension Current Visit: No Status: Chronic Qualifiers: Hypertension type: essential hypertension Qualified Code(s): I10 - Essential (primary) hypertension (5) Methadone maintenance therapy patient Current Visit: No Status: Chronic (6) Insomnia Current Visit: Yes Status: Acute Cleared for Admission [facility] - Detox or Rehab [facility] Level of Care: Medically Managed Detox Regimen/Protocol: Valium Breathalyzer - Breathalyzer Breathalyzer: 0 Urine Drug Screen - Test Device Lot number: [id number] Expiration date: 05/04/19 - Control Is test valid?: Yes - Results Drug screen NEGATIVE: No Urine drug screen results: MTD-Methadone, BZO-Benzodiazepines Inpatient Rehab Admission - Rehab Decision to Admit Inpatient rehab admission?: No
[2018-09-21] MEDS ORDERED: METHOCARBAMOL 500 MG TABLET PO PRN (13:26)
[2018-09-21] MEDS ORDERED: MENTHOL/PHENOL 1 EACH UD MM PRN (13:26)
[2018-09-21] MEDS ORDERED: MAG HYDROX/AL HYDROX/SIMETH 30 ML UNIT-DOSE CUP PO PRN (13:26)
[2018-09-21] MEDS ORDERED: NICOTINE POLACRILEX 2 MG GUM BUC PRN (13:26)
[2018-09-21] MEDS ORDERED: IBUPROFEN 400 MG TABLET (FP) PO PRN (13:26)
[2018-09-21] MEDS ORDERED: BISMUTH SUBSALICYLATE 524 MG/30 ML UD PO PRN (13:26)
[2018-09-21] MEDS ORDERED: MAGNESIUM HYDROX 2400MG/30ML ORAL SUSPENSION 30 ML CUP PO PRN (13:26)
[2018-09-21] MEDS ORDERED: MAGNESIUM CITRATE 300 ML BOTTLE PO PRN (13:26)
[2018-09-21] MEDS ORDERED: ACETAMINOPHEN 325 MG TABLET (FP) PO PRN ×2 (13:26)
[2018-09-21] MEDS: diazePAM 5 MG TABLET PO PRN (15:18)
[2018-09-21 17:16] LABS: HEMATOCRIT 37.8 % (35.4-49); HEMOGLOBIN 12.5 GM/dL (11.7-16.9); MCH 30.4 pg (25.7-33.7); MCHC 33.2 g/dl (32.0-35.9); MEAN CELL VOLUME 91.5 fl (80-96); MEAN PLT VOLUME 8.4 fl (7.5-11.1); PLATELET COUNT 297 K/MM3 (134-434); RBC 4.13 M/mm3 (4.00-5.60); RDW 14.4 % (11.9-15.9); WHITE BLOOD COUNT 9.1 K/mm3 (4.0-10.0)
[2018-09-21 17:28] LABS: ALBUMIN 3.7 g/dl (3.4-5.0); ALK PHOS 90 U/L (45-117); ANION GAP 6 MMOL/L (8-16); BILIRUBIN,TOTAL 0.2 mg/dL (0.2-1); BLOOD UREA NITROGEN 16 mg/dL (7-18); CALCIUM 9.8 mg/dL (8.5-10.1); CHLORIDE 99 mmol/L (98-107); CO2 32 mmol/L (21-32); GLUCOSE,RANDOM 125 mg/dL (74-106); POTASSIUM 3.8 mmol/L (3.5-5.1); SGOT/AST 15 U/L (15-37); SGPT/ALT 25 U/L (13-61); SODIUM 137 mmol/L (136-145); TOT PROT 7.8 g/dl (6.4-8.2)
[2018-09-21] MEDS: metFORMIN HCL 500 MG TABLET (FP) PO SCH (18:03)
[2018-09-21] MEDS: diazePAM 5 MG TABLET PO SCH (22:08)
[2018-09-21] MEDS: MELATONIN 5 MG TABLETS PO PRN (22:08)
[2018-09-21] MEDS: THIAMINE HCL 100 MG TABLET (FP) PO SCH (22:08)
[2018-09-21] MEDS: ATORVASTATIN CA 40 MG TABLET (FP) PO SCH (22:08)
[2018-09-21 23:56] LABS: PH,URINE 5.5 (5.0-8.0); URINE APPEARANCE CLEAR; URINE BILIRUBIN NEGATIVE (NEGATIVE); URINE COLOR YELLOW; URINE GLUCOSE (UA) NEGATIVE (NEGATIVE); URINE KETONE NEGATIVE (NEGATIVE); URINE LEUK ESTERASE NEGATIVE (NEGATIVE); URINE NITRITE NEGATIVE (NEGATIVE); URINE PROTEIN NEGATIVE (NEGATIVE)
[2018-09-22] MEDS ORDERED: METHADONE HCL 10 MG TABLET ONE (04:30)
[2018-09-22] MEDS ORDERED: METHADONE HCL 40 MG DISPERSABLE TABLET ONE (04:31)
[2018-09-22] MEDS: METHADONE 80 MG, METHADONE 10 MG PO SCH (05:11)
[2018-09-22] MEDS: diazePAM 5 MG TABLET PO SCH ×3 (05:12→23:08)
[2018-09-22] MEDS ORDERED: METHADONE HCL 10 MG TABLET PO SCH (06:00)
[2018-09-22] MEDS ORDERED: METHADONE 80 MG, METHADONE 10 MG PO SCH (06:00)
[2018-09-22] MEDS: metFORMIN HCL 500 MG TABLET (FP) PO SCH ×2 (06:50→17:39)
[2018-09-22] MEDS: PRENATAL VITAMINS W/ FOLIC ACID TABLET (FP) PO SCH (10:12)
[2018-09-22] MEDS: ASPIRIN 81 MG CHEWABLE TABLETS PO SCH (10:12)
[2018-09-22] MEDS: LISINOPRIL 5 MG TABLET (FP) PO SCH (10:12)
[2018-09-22] MEDS: BISMUTH SUBSALICYLATE 262 MG/15 ML BTL PO PRN ×2 (10:15→17:40)
[2018-09-22] MEDS: diazePAM 5 MG TABLET PO PRN ×2 (10:36→17:39)
--- NOTE | 2018-09-22 16:58 | PN ---
[facility] CIWA - CIWA Score Nausea/Vomitin-No Nausea/No Vomiting Muscle Tremors: 3 Anxiety: 2 Agitation: 0-Normal Activity Paroxysmal Sweats: 3 Orientation: 0-Oriented Tacttile Disturbances: 0-None Auditory Disturbances: 0-None Visual Disturbances: 0-None Headache: 2-Mild CIWA-Ar Total Score: 10 S Progress Note (SOAP) Subjective: sweats headache tremors irritable Objective: 09/22/18 16:56 Vital Signs 09/22/18 09/22/18 09:57 14:37 Temperature 97.0 F L 98.3 F Pulse Rate 62 67 Respiratory 18 18 Rate Blood Pressure 130/77 119/65 Laboratory Last Values WBC 9.1 K/mm3 (4.0-10.0) 09/21/18 13:20 RBC 4.13 M/mm3 (4.00-5.60) 09/21/18 13:20 Hgb 12.5 GM/dL (11.7-16.9) 09/21/18 13:20 Hct 37.8 % (35.4-49) 09/21/18 13:20 MCV 91.5 fl (80-96) 09/21/18 13:20 MCH 30.4 pg (25.7-33.7) 09/21/18 13:20 MCHC 33.2 g/dl (32.0-35.9) 09/21/18 13:20 RDW 14.4 % (11.9-15.9) 09/21/18 13:20 Plt Count 297 K/MM3 (134-434) D 09/21/18 13:20 MPV 8.4 fl (7.5-11.1) 09/21/18 13:20 Sodium 137 mmol/L (136-145) 09/21/18 13:20 Potassium 3.8 mmol/L (3.5-5.1) 09/21/18 13:20 Chloride 99 mmol/L (98-107) 09/21/18 13:20 Carbon Dioxide 32 mmol/L (21-32) 09/21/18 13:20 Anion Gap 6 MMOL/L (8-16) L 09/21/18 13:20 BUN 16 mg/dL (7-18) 09/21/18 13:20 Creatinine 1.0 mg/dL (0.55-1.3) 09/21/18 13:20 Creat Clearance w eGFR 77.87 (>60) 09/21/18 13:20 POC Glucometer 92 UNITS (80-120) 09/22/18 05:10 Random Glucose 125 mg/dL (74-106) H 09/21/18 13:20 Calcium 9.8 mg/dL (8.5-10.1) 09/21/18 13:20 Total Bilirubin 0.2 mg/dL (0.2-1) 09/21/18 13:20 AST 15 U/L (15-37) 09/21/18 13:20 ALT 25 U/L (13-61) 09/21/18 13:20 Alkaline Phosphatase 90 U/L (45-117) 09/21/18 13:20 Total Protein 7.8 g/dl (6.4-8.2) 09/21/18 13:20 Albumin 3.7 g/dl (3.4-5.0) 09/21/18 13:20 Urine Color Yellow 09/21/18 21:29 Urine Appearance Clear 09/21/18 21:29 Urine pH 5.5 (5.0-8.0) 09/21/18 21:29 Ur Specific Wagner 1.021 (1.010-1.035) 09/21/18 21:29 Urine Protein Negative (NEGATIVE) 09/21/18 21:29 Urine Glucose (UA) Negative (NEGATIVE) 09/21/18 21:29 Urine Ketones Negative (NEGATIVE) 09/21/18 21:29 Urine Blood Negative (NEGATIVE) 09/21/18 21:29 Urine Nitrite Negative (NEGATIVE) 09/21/18 21:29 Urine Bilirubin Negative (NEGATIVE) 09/21/18 21:29 Urine Urobilinogen 1.0 mg/dL (0.2-1.0) 09/21/18 21:29 Ur Leukocyte Esterase Negative (NEGATIVE) 09/21/18 21:29 RPR Titer Nonreactive (NONREACTIVE) 09/21/18 13:20 Labs reviewed Assessment: 09/22/18 16:56 AOX3 no distress EENT: wnl full rom withdrawal signs persists Plan: continue detox increase fluids continue to monitor
[2018-09-22] MEDS: hydrOXYzine PAMOATE 25 MG CAPSULE (FP) PO PRN (23:07)
[2018-09-22] MEDS: ATORVASTATIN CA 40 MG TABLET (FP) PO SCH (23:07)
[2018-09-22] MEDS: MELATONIN 5 MG TABLETS PO PRN (23:08)
[2018-09-22] MEDS: THIAMINE HCL 100 MG TABLET (FP) PO SCH (23:08)
[2018-09-23] MEDS ORDERED: METHADONE HCL 10 MG TABLET ONE (03:58)
[2018-09-23] MEDS ORDERED: METHADONE HCL 40 MG DISPERSABLE TABLET ONE (03:58)
[2018-09-23] MEDS: METHADONE 80 MG, METHADONE 10 MG PO SCH (05:31)
[2018-09-23] MEDS: metFORMIN HCL 500 MG TABLET (FP) PO SCH ×2 (06:08→17:41)
[2018-09-23] MEDS: ASPIRIN 81 MG CHEWABLE TABLETS PO SCH (10:21)
[2018-09-23] MEDS: LISINOPRIL 5 MG TABLET (FP) PO SCH (10:21)
[2018-09-23] MEDS: PRENATAL VITAMINS W/ FOLIC ACID TABLET (FP) PO SCH (10:21)
[2018-09-23] MEDS: diazePAM 5 MG TABLET PO SCH ×2 (10:21→22:38)
--- NOTE | 2018-09-23 15:26 | PN ---
[facility] CIWA - CIWA Score Nausea/Vomitin-Mild Nausea/No Vomiting Muscle Tremors: 2 Anxiety: 2 Agitation: 2 Paroxysmal Sweats: 2 Orientation: 0-Oriented Tacttile Disturbances: 0-None Auditory Disturbances: 0-None Visual Disturbances: 0-None Headache: 0-None Present CIWA-Ar Total Score: 9 [facility] Progress Note (SOAP) Subjective: Diarrhea, sweating, anxious, interrupted sleep Objective: 09/23/18 15:24 Last Vital Signs Temp Pulse Resp BP Pulse Ox 98.8 F 66 18 108/55 L 09/23/18 14:24 09/23/18 14:24 09/23/18 14:24 09/23/18 14:24 Laboratory Tests 09/21/18 09/21/18 09/21/18 13:20 13:20 13:20 WBC 9.1 RBC 4.13 Hgb 12.5 Hct 37.8 MCV 91.5 MCH 30.4 MCHC 33.2 RDW 14.4 Plt Count 297 D MPV 8.4 Sodium 137 Potassium 3.8 Chloride 99 Carbon Dioxide 32 Anion Gap 6 L BUN 16 Creatinine 1.0 Creat Clearance w eGFR 77.87 POC Glucometer Random Glucose 125 H Calcium 9.8 Total Bilirubin 0.2 AST 15 ALT 25 Alkaline Phosphatase 90 Total Protein 7.8 Albumin 3.7 Urine Color Urine Appearance Urine pH Ur Specific Sultan Urine Protein Urine Glucose (UA) Urine Ketones Urine Blood Urine Nitrite Urine Bilirubin Urine Urobilinogen Ur Leukocyte Esterase RPR Titer Nonreactive 09/21/18 09/21/18 09/21/18 13:24 18:01 21:29 WBC RBC Hgb Hct MCV MCH MCHC RDW Plt Count MPV Sodium Potassium Chloride Carbon Dioxide Anion Gap BUN Creatinine Creat Clearance w eGFR POC Glucometer 135 94 Random Glucose Calcium Total Bilirubin AST ALT Alkaline Phosphatase Total Protein Albumin Urine Color Yellow Urine Appearance Clear Urine pH 5.5 Ur Specific Sultan 1.021 Urine Protein Negative Urine Glucose (UA) Negative Urine Ketones Negative Urine Blood Negative Urine Nitrite Negative Urine Bilirubin Negative Urine Urobilinogen 1.0 Ur Leukocyte Esterase Negative RPR Titer 09/22/18 09/23/18 05:10 05:31 WBC RBC Hgb Hct MCV MCH MCHC RDW Plt Count MPV Sodium Potassium Chloride Carbon Dioxide Anion Gap BUN Creatinine Creat Clearance w eGFR POC Glucometer 92 92 Random Glucose Calcium Total Bilirubin AST ALT Alkaline Phosphatase Total Protein Albumin Urine Color Urine Appearance Urine pH Ur Specific Sultan Urine Protein Urine Glucose (UA) Urine Ketones Urine Blood Urine Nitrite Urine Bilirubin Urine Urobilinogen Ur Leukocyte Esterase RPR Titer Labs reviewed Assessment: 09/23/18 15:25 Withdrawal symptoms Plan: Continue detox Encouraged PO water hydration
[2018-09-23] MEDS: diazePAM 5 MG TABLET PO PRN (17:41)
[2018-09-23] MEDS ORDERED: ATORVASTATIN CA 20 MG TABLET (FP) ONE (21:32)
[2018-09-23] MEDS: ATORVASTATIN CA 40 MG TABLET (FP) PO SCH (22:37)
[2018-09-23] MEDS: THIAMINE HCL 100 MG TABLET (FP) PO SCH (22:38)
[2018-09-23] MEDS: MELATONIN 5 MG TABLETS PO PRN (22:38)
[2018-09-23] MEDS: hydrOXYzine PAMOATE 25 MG CAPSULE (FP) PO PRN (22:39)
[2018-09-24] MEDS ORDERED: METHADONE HCL 10 MG TABLET ONE (04:17)
[2018-09-24] MEDS ORDERED: METHADONE HCL 40 MG DISPERSABLE TABLET ONE (04:17)
[2018-09-24] MEDS: METHADONE 80 MG, METHADONE 10 MG PO SCH (05:07)
[2018-09-24] MEDS ORDERED: diazePAM 5 MG TABLET PO SCH (06:00)
[2018-09-24] MEDS: metFORMIN HCL 500 MG TABLET (FP) PO SCH (06:56)
[2018-09-24] MEDS: ASPIRIN 81 MG CHEWABLE TABLETS PO SCH (09:32)
[2018-09-24] MEDS: LISINOPRIL 5 MG TABLET (FP) PO SCH (09:32)
[2018-09-24] MEDS: PRENATAL VITAMINS W/ FOLIC ACID TABLET (FP) PO SCH (09:32)
[2018-09-24 10:41] VITALS: BP 114/61; PULSE 63; TEMP 97.7
--- NOTE | 2018-09-24 21:07 | DS ---
[facility] Detox Discharge Summary Admission Date: 09/21/18 Discharge Date: 09/24/18 - History Present History: Opioid Dependence, Sedative Dependence, MMTP Additional Comments: PATIENT RETURNING TO '[facility]' OUTPATIENT SUBSTANCE USE TREATMENT PROGRAM ( [place], [place]), WHERE HE IS CURRENTLY A CLIENT OF, AND TO [facility] M.M.T[facility]. PROGRAM ([place], [place]), WHERE HE IS ALSO CURRENTLY A CLIENT OF, FOR AFTERCARE. PATIENT DECLINED OFFER OF MEDICATION PRESCRIPTION FOR HOME MEDICATION AT TIME OF DISCHARGE FROM DETOX, NOTING THAT HE CURRENTLY HAS ADEQUATE SUPPLIES OF ALL PRESCRIBED HOME MEDICATIONS AT HOME. PATIENT WAS DISCHARGED FROM DETOX UNIT IN STABLE MEDICAL CONDITION. Pertinent Past History: Hypertension, Type II DM, Insomnia, Nicotine Dependence, Hypercholesterolemia, Depression, M.M.T.P. - Physical Exam Results Vital Signs: Vital Signs Temperature 97.7 F 09/24/18 10:41 Pulse Rate 63 09/24/18 10:41 Respiratory Rate 18 09/24/18 10:41 Blood Pressure 114/61 09/24/18 10:41 O2 Sat by Pulse Oximetry (%) - Treatment Hospital Course: Detox Protocol Followed, Detoxed Safely, Responded well, Discharged Condition Good Patient has Accepted a Rehab Referral to: PT. RETURNING TO [facility] OP PROGRAM AND [facility] MMTP PROGRAM ([place] - Medication Discharge Medications: Ambulatory Orders Aspirin [ASA -] 81 mg PO DAILY 09/01/17 Atorvastatin Ca [Lipitor] 40 mg PO HS 09/01/17 Lisinopril 2.5 mg PO DAILY 09/01/17 metFORMIN HCL [Metformin HCl] 500 mg PO BID 09/01/17 - Diagnosis (1) Insomnia Status: Acute Qualifiers: Insomnia type: unspecified Qualified Code(s): G47.00 - Insomnia, unspecified (2) Sedative, hypnotic or anxiolytic dependence with withdrawal, unspecified Status: Acute (3) Diabetes mellitus type 2 in obese Status: Chronic (4) Hyperlipidemia Status: Chronic Qualifiers: Hyperlipidemia type: unspecified Qualified Code(s): E78.5 - Hyperlipidemia , unspecified (5) Hypertension Status: Chronic Qualifiers: Hypertension type: essential hypertension Qualified Code(s): I10 - Essential (primary) hypertension (6) Methadone maintenance therapy patient Status: Chronic - AMA Did Patient Leave Against Medical Advice: No
== END 2018-09-24 10:56 | disposition home or self-care (01) | DRG 773 ==
LOC: YASAS 11:20 → Y6N 13:31
PROVIDERS: ADMIT Surgery; ATTEND Surgery
PROC: HZ2ZZZZ Detoxification Services for Substance Abuse Treatment (ICD-10-PCS; principal; 2018-09-21)
DX: F13.230 Sedative, hypnotic or anxiolytic dependence with withdrawal, uncomplicated (principal); F11.20 Opioid dependence, uncomplicated; F17.213 Nicotine dependence, cigarettes, with withdrawal; I10 Essential (primary) hypertension; E11.9 Type 2 diabetes mellitus without complications; Z79.84 Long term (current) use of oral hypoglycemic drugs; E78.00 Pure hypercholesterolemia, unspecified; G47.00 Insomnia, unspecified; E66.01 Morbid (severe) obesity due to excess calories; Z68.41 Body mass index [BMI] 40.0-44.9, adult; Z79.82 Long term (current) use of aspirin
CPT/HCPCS: 36415; 80053; 81003; 82962; 85027; 86593

== ENCOUNTER 2019-04-07 10:30 | Inpatient (IN) | payer OTHER ==
[2019-04-07 10:54] VITALS: BMI 42.3
--- NOTE | 2019-04-07 12:39 | HP ---
CIWA Score Nausea/Vomitin-Mild Nausea/No Vomiting Muscle Tremors: 3 Anxiety: 3 Agitation: 3 Paroxysmal Sweats: 1-Minimal Palms Moist Orientation: 0-Oriented Tacttile Disturbances: 0-None Auditory Disturbances: 0-None Visual Disturbances: 0-None Headache: 1-Very Mild CIWA-Ar Total Score: 12 - Admission Criteria OASAS Guidelines: Admission for Medically Managed Detox: Requires at least one of the followin. CIWA greater than 12 2. Seizures within the past 24 hours 3. Delirium tremens within the past 24 hours 4. Hallucinations within the past 24 hours 5. Acute intervention needed for co occurring medical disorder 6. Acute intervention needed for co occurring psychiatric disorder 7. Severe withdrawal that cannot be handled at a lower level of care (continued vomiting, continued diarrhea, abnormal vital signs) requiring intravenous medication and/or fluids 8. Admitting History and Physical - Smoking History Smoking history: Current every day smoker Have you smoked in the past 12 months: Yes Aproximately how many cigarettes per day: 20 - Alcohol/Substance Use Hx Alcohol Use: No Admission ROS [facility] - HPI Chief Complaint: benzo detox Allergies/Adverse Reactions: Allergies Allergy/AdvReac Type Severity Reaction Status Date / Time No Known Allergies Allergy Verified 04/07/19 10:44 - Ebola screening Have you traveled outside of the country in the last 21 days: No (N) Have you had contact with anyone from an Ebola affected area: No Do you have a fever: No - Review of Systems Constitutional: Changes in sleep EENT: reports: No Symptoms Reported Respiratory: reports: No Symptoms reported Cardiac: reports: No Symptoms Reported GI: reports: Nausea, Indigestion, Abdominal cramping : reports: No Symptoms Reported Musculoskeletal: reports: No Symptoms Reported Integumentary: reports: No Symptoms Reported Neuro: reports: No Symptoms reported Endocrine: reports: No Symptoms Reported Hematology: reports: No Symptoms Reported Psychiatric: reports: Mood/Affect Appropiate, Orientated x3, Anxious Patient History - Patient Medical History Hx Anemia: No Hx Asthma: No Hx Chronic Obstructive Pulmonary Disease (COPD): No Hx Cancer: No Hx Cardiac Disorders: No Hx Congestive Heart Failure: No Hx Hypertension: Yes (on med) Hx Hypercholesterolemia: Yes Hx Pacemaker: No HX Cerebrovascular Accident: No Hx Seizures: No Hx Diabetes: Yes (on Metformin) Hx Gastrointestinal Disorders: No Hx Liver Disease: No Hx Genitourinary Disorders: No Hx Sexually Transmitted Disorders: No Hx Renal Disease (ESRD): No Hx Thyroid Disease: No Hx Human Immunodeficiency Virus (HIV): No (negative, last tested August 2016) Hx Hepatitis C: No Hx Depression: Yes (no med) Hx Suicide Attempt: No Hx Bipolar Disorder: No Hx Schizophrenia: No - Patient Surgical History Past Surgical History: No Hx Neurologic Surgery: No Hx Cataract Extraction: No Hx Cardiac Surgery: No Hx Lung Surgery: No Hx Breast Surgery: No Hx Breast Biopsy: No Hx Abdominal Surgery: No Hx Appendectomy: No Hx Cholecystectomy: No Hx Genitourinary Surgery: No Hx Section: No Hx Orthopedic Surgery: No Anesthesia Reaction: No - PPD History Date: 09/03/17 - Smoking Cessation Smoking history: Current every day smoker Have you smoked in the past 12 months: Yes Aproximately how many cigarettes per day: 20 Hx Chewing Tobacco Use: No Initiated information on smoking cessation: Yes 'Breaking Loose' booklet given: 04/07/19 - Substances abused Alprazolam (Xanax) Other (specify): 2mg Substance route: Oral Frequency: 1-2 times per week Amount used: 1 tablet Age of first use: 49 Date of last use: 03/25/19 Benzodiazepine (Klonopin) Other (specify): 2MG Substance route: Oral Frequency: Daily Amount used: 1tab Age of first use: 49 Date of last use: 04/07/19 Admission Physical Exam [facility] - Vital Signs Vital Signs: Vital Signs - 24 hr 04/07/19 10:35 Temperature 97.4 F L Pulse Rate 66 Respiratory 18 Rate Blood Pressure 112/68 - Physical General Appearance: Yes: Anxious HEENTM: Yes: EOMI Respiratory: Yes: Chest Non-Tender, Lungs Clear Neck: Yes: Within Normal Limits Cardiology: Yes: Regular Rhythm, Regular Rate, S1, S2 Abdominal: Yes: Normal Bowel Sounds, Non Tender, Soft Back: Yes: Within Normal Limits, Normal Inspection Musculoskeletal: Yes: Within Normal Limits, full range of Motion, Gait Steady Extremities: Yes: Normal Capillary Refill, Normal Inspection, Normal Range of Motion, Non-Tender Neurological: Yes: 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-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 NML intact, Fully Oriented, Alert, Motor Strength 5/5 Integumentary: Yes: Within Normal Limits - Diagnostic (1) Anxious mood Current Visit: Yes Status: Acute (2) Nicotine dependence Current Visit: Yes Status: Acute Qualifiers: Nicotine product type: cigarettes Substance use status: in withdrawal Qualified Code(s): F17.213 - Nicotine dependence, cigarettes, with withdrawal (3) Sedative, hypnotic or anxiolytic dependence with withdrawal, unspecified Current Visit: Yes Status: Acute (4) Diabetes mellitus type 2 in obese Current Visit: No Status: Chronic (5) Hyperlipidemia Current Visit: No Status: Chronic Qualifiers: Hyperlipidemia type: unspecified Qualified Code(s): E78.5 - Hyperlipidemia , unspecified (6) Hypertension Current Visit: No Status: Chronic Qualifiers: Hypertension type: essential hypertension Qualified Code(s): I10 - Essential (primary) hypertension (7) Methadone maintenance therapy patient Current Visit: Yes Status: Chronic (8) Morbid obesity with BMI of 40.0-44.9, adult Current Visit: Yes Status: Chronic Breathalyzer - Breathalyzer Breathalyzer: 0 Urine Drug Screen - Test Device Lot number: [id number] Expiration date: 12/02/20 - Control Is test valid?: Yes - Results Drug screen NEGATIVE: No Urine drug screen results: MOP-Opiates, MTD-Methadone, BZO-Benzodiazepines Inpatient Rehab Admission - Rehab Decision to Admit Inpatient rehab admission?: No
[2019-04-07] MEDS ORDERED: MAGNESIUM CITRATE 300 ML BOTTLE PO PRN (12:42)
[2019-04-07] MEDS ORDERED: diazePAM 5 MG TABLET PO PRN (12:42)
[2019-04-07] MEDS ORDERED: MAGNESIUM HYDROX 2400MG/30ML ORAL SUSPENSION 30 ML CUP PO PRN (12:42)
[2019-04-07] MEDS ORDERED: hydrOXYzine PAMOATE 25 MG CAPSULE (FP) PO PRN (12:42)
[2019-04-07] MEDS ORDERED: MENTHOL/PHENOL 1 EACH UD MM PRN (12:42)
[2019-04-07] MEDS ORDERED: BISMUTH SUBSALICYLATE 524 MG/30 ML UD PO PRN (12:42)
[2019-04-07] MEDS ORDERED: IBUPROFEN 400 MG TABLET (FP) PO PRN (12:42)
[2019-04-07] MEDS ORDERED: METHOCARBAMOL 500 MG TABLET PO PRN (12:42)
[2019-04-07] MEDS ORDERED: ACETAMINOPHEN 325 MG TABLET (FP) PO PRN (12:42)
[2019-04-07] MEDS: diazePAM 5 MG TABLET PO SCH ×2 (13:24→22:03)
[2019-04-07] MEDS: metFORMIN HCL 500 MG TABLET (FP) PO SCH (17:02)
[2019-04-07] MEDS: ACETAMINOPHEN 325 MG TABLET (FP) PO PRN (17:03)
[2019-04-07] MEDS ORDERED: NICOTINE POLACRILEX 2 MG GUM BUC PRN (18:08)
[2019-04-07] MEDS: MAG HYDROX/AL HYDROX/SIMETH 30 ML UNIT-DOSE CUP PO PRN (20:04)
[2019-04-07] MEDS: NICOTINE 14 MG/24 HOURS TOPICAL PATCH TD SCH (20:07)
[2019-04-07] MEDS: MELATONIN 5 MG TABLETS PO PRN (22:04)
[2019-04-07] MEDS: THIAMINE HCL 100 MG TABLET (FP) PO SCH (23:19)
[2019-04-07] MEDS: ATORVASTATIN CA 40 MG TABLET (FP) PO SCH (23:19)
[2019-04-08] MEDS: diazePAM 5 MG TABLET PO SCH ×3 (05:13→22:04)
[2019-04-08] MEDS: metFORMIN HCL 500 MG TABLET (FP) PO SCH ×2 (07:46→17:31)
[2019-04-08] MEDS ORDERED: METHADONE HCL 10 MG TABLET PO ONE (08:29)
[2019-04-08] MEDS ORDERED: METHADONE 80 MG, METHADONE 10 MG PO ONE (08:45)
[2019-04-08] MEDS ORDERED: METHADONE HCL 10 MG TABLET ONE (09:50)
[2019-04-08] MEDS ORDERED: METHADONE HCL 40 MG DISPERSABLE TABLET ONE (09:51)
--- NOTE | 2019-04-08 09:51 | PN ---
[facility] CIWA - CIWA Score Nausea/Vomitin-No Nausea/No Vomiting Muscle Tremors: 3 Anxiety: 2 Agitation: 2 Paroxysmal Sweats: 3 Orientation: 0-Oriented Tacttile Disturbances: 0-None Auditory Disturbances: 0-None Visual Disturbances: 0-None Headache: 0-None Present CIWA-Ar Total Score: 10 [facility] Progress Note (SOAP) Subjective: sweats shakes interrupted sleep body aches headache stomach ache Objective: 04/08/19 09:49 Vital Signs Temperature 97.9 F 04/08/19 09:24 Pulse Rate 70 04/08/19 09:24 Respiratory Rate 18 04/08/19 09:24 Blood Pressure 97/63 04/08/19 09:24 O2 Sat by Pulse Oximetry (%) Laboratory Tests 04/07/19 04/08/19 16:44 05:12 POC Glucometer 99 118 rest of labs pending aaox3 ambulating no acute distress Assessment: 04/08/19 09:50 withdrawal sx Plan: continue detox increase fluids MOM/mylanta tylenol/motrin prn pending labs
[2019-04-08 10:01] LABS: HEMATOCRIT 34.5 % (35.4-49); HEMOGLOBIN 11.6 GM/dL (11.7-16.9); MCH 30.6 pg (25.7-33.7); MCHC 33.6 g/dl (32.0-35.9); MEAN PLT VOLUME 8.7 fl (7.5-11.1); PLATELET COUNT 255 K/MM3 (134-434); RBC 3.79 M/mm3 (4.00-5.60); RDW 14.6 % (11.9-15.9); WHITE BLOOD COUNT 7.1 K/mm3 (4.0-10.0)
[2019-04-08 10:02] LABS: ALBUMIN 3.2 g/dl (3.4-5.0); BILIRUBIN,TOTAL 0.2 mg/dL (0.2-1); BLOOD UREA NITROGEN 13.7 mg/dL (7-18); CALCIUM 9.1 mg/dL (8.5-10.1); CREATININE 0.9 mg/dL (0.55-1.3); POTASSIUM 3.8 mmol/L (3.5-5.1); TOT PROT 6.8 g/dl (6.4-8.2)
[2019-04-08] MEDS: NICOTINE 14 MG/24 HOURS TOPICAL PATCH TD SCH (10:11)
[2019-04-08] MEDS: ASPIRIN 81 MG CHEWABLE TABLETS PO SCH (10:12)
[2019-04-08] MEDS: LISINOPRIL 5 MG TABLET (FP) PO SCH (10:12)
[2019-04-08] MEDS: PRENATAL VITAMINS W/ FOLIC ACID TABLET (FP) PO SCH (10:12)
[2019-04-08] MEDS ORDERED: FLU VACCINE QUAD 60 MCG/0.5 ML (MDV 19-20) IM ONE (12:00)
[2019-04-08] MEDS: MAG HYDROX/AL HYDROX/SIMETH 30 ML UNIT-DOSE CUP PO PRN (13:24)
[2019-04-08] MEDS: THIAMINE HCL 100 MG TABLET (FP) PO SCH (22:04)
[2019-04-08] MEDS: MELATONIN 5 MG TABLETS PO PRN (22:04)
[2019-04-08] MEDS: ATORVASTATIN CA 40 MG TABLET (FP) PO SCH (22:04)
[2019-04-08] MEDS: ACETAMINOPHEN 325 MG TABLET (FP) PO PRN (22:38)
[2019-04-09] MEDS ORDERED: METHADONE HCL 40 MG DISPERSABLE TABLET ONE (05:45)
[2019-04-09] MEDS ORDERED: METHADONE HCL 10 MG TABLET ONE (05:45)
[2019-04-09] MEDS: METHADONE 80 MG, METHADONE 10 MG PO SCH (05:58)
[2019-04-09] MEDS: diazePAM 5 MG TABLET PO SCH ×2 (05:58→19:06)
[2019-04-09] MEDS ORDERED: METHADONE HCL 40 MG DISPERSABLE TABLET PO SCH (06:00)
[2019-04-09] MEDS: metFORMIN HCL 500 MG TABLET (FP) PO SCH ×2 (06:03→17:00)
--- NOTE | 2019-04-09 10:21 | PN ---
[facility] CIWA - CIWA Score Nausea/Vomitin-Mild Nausea/No Vomiting Muscle Tremors: 2 Anxiety: 2 Agitation: 2 Paroxysmal Sweats: No Perspiration Orientation: 0-Oriented Tacttile Disturbances: 1-Very Mild Itch/Numbness Auditory Disturbances: 0-None Visual Disturbances: 0-None Headache: 2-Mild CIWA-Ar Total Score: 10 S Progress Note (SOAP) Subjective: alert,irritable,anxious,interrupted sleep,tremor,pain in the body Objective: 04/09/19 10:19 Vital Signs Temperature 97.5 F L 04/09/19 09:28 Pulse Rate 62 04/09/19 09:28 Respiratory Rate 18 04/09/19 09:28 Blood Pressure 111/63 04/09/19 09:28 O2 Sat by Pulse Oximetry (%) 04/09/19 10:20 Laboratory Last Values WBC 7.1 K/mm3 (4.0-10.0) 04/08/19 08:00 RBC 3.79 M/mm3 (4.00-5.60) L 04/08/19 08:00 Hgb 11.6 GM/dL (11.7-16.9) L 04/08/19 08:00 Hct 34.5 % (35.4-49) L 04/08/19 08:00 MCV 91.0 fl (80-96) 04/08/19 08:00 MCH 30.6 pg (25.7-33.7) 04/08/19 08:00 MCHC 33.6 g/dl (32.0-35.9) 04/08/19 08:00 RDW 14.6 % (11.9-15.9) 04/08/19 08:00 Plt Count 255 K/MM3 (134-434) 04/08/19 08:00 MPV 8.7 fl (7.5-11.1) 04/08/19 08:00 Sodium 137 mmol/L (136-145) 04/08/19 08:00 Potassium 3.8 mmol/L (3.5-5.1) 04/08/19 08:00 Chloride 100 mmol/L (98-107) 04/08/19 08:00 Carbon Dioxide 34 mmol/L (21-32) H 04/08/19 08:00 Anion Gap 3 MMOL/L (8-16) L 04/08/19 08:00 BUN 13.7 mg/dL (7-18) 04/08/19 08:00 Creatinine 0.9 mg/dL (0.55-1.3) 04/08/19 08:00 Est GFR (CKD-EPI)AfAm 111.83 04/08/19 08:00 Est GFR (CKD-EPI)NonAf 96.49 04/08/19 08:00 POC Glucometer 122 UNITS (80-120) 04/09/19 06:01 Random Glucose 110 mg/dL (74-106) H 04/08/19 08:00 Calcium 9.1 mg/dL (8.5-10.1) 04/08/19 08:00 Total Bilirubin 0.2 mg/dL (0.2-1) 04/08/19 08:00 AST 17 U/L (15-37) 04/08/19 08:00 ALT 18 U/L (13-61) 04/08/19 08:00 Alkaline Phosphatase 103 U/L (45-117) 04/08/19 08:00 Total Protein 6.8 g/dl (6.4-8.2) 04/08/19 08:00 Albumin 3.2 g/dl (3.4-5.0) L 04/08/19 08:00 RPR Titer Nonreactive (NONREACTIVE) 04/08/19 08:00 Assessment: 04/09/19 10:20 withdrawal symptom Plan: continue detox valium regimen
[2019-04-09] MEDS: NICOTINE 14 MG/24 HOURS TOPICAL PATCH TD SCH (10:43)
[2019-04-09] MEDS: ASPIRIN 81 MG CHEWABLE TABLETS PO SCH (10:43)
[2019-04-09] MEDS: LISINOPRIL 5 MG TABLET (FP) PO SCH (10:43)
[2019-04-09] MEDS: PRENATAL VITAMINS W/ FOLIC ACID TABLET (FP) PO SCH (10:43)
[2019-04-09] MEDS ORDERED: FLUCONAZOLE 50 MG TABLET PO ONE (10:51)
[2019-04-09] MEDS: THIAMINE HCL 100 MG TABLET (FP) PO SCH (22:03)
[2019-04-09] MEDS: MELATONIN 5 MG TABLETS PO PRN (22:03)
[2019-04-09] MEDS: ATORVASTATIN CA 40 MG TABLET (FP) PO SCH (22:03)
[2019-04-09] MEDS: ACETAMINOPHEN 325 MG TABLET (FP) PO PRN (22:04)
[2019-04-10] MEDS ORDERED: METHADONE HCL 10 MG TABLET ONE (04:50)
[2019-04-10] MEDS ORDERED: METHADONE HCL 40 MG DISPERSABLE TABLET ONE (04:51)
[2019-04-10] MEDS ORDERED: diazePAM 5 MG TABLET PO ONE (06:00)
[2019-04-10] MEDS: METHADONE 80 MG, METHADONE 10 MG PO SCH (06:04)
[2019-04-10] MEDS: metFORMIN HCL 500 MG TABLET (FP) PO SCH ×2 (06:05→17:06)
[2019-04-10] MEDS ORDERED: diphenhydrAMINE HCL 50 MG CAPSULE PO PRN (09:35)
[2019-04-10] MEDS: LISINOPRIL 5 MG TABLET (FP) PO SCH (10:09)
[2019-04-10] MEDS: PRENATAL VITAMINS W/ FOLIC ACID TABLET (FP) PO SCH (10:09)
[2019-04-10] MEDS: ASPIRIN 81 MG CHEWABLE TABLETS PO SCH (10:10)
[2019-04-10] MEDS: NICOTINE 14 MG/24 HOURS TOPICAL PATCH TD SCH (10:10)
--- NOTE | 2019-04-10 14:28 | PN ---
[facility] CIWA - CIWA Score Nausea/Vomitin-Mild Nausea/No Vomiting Muscle Tremors: 1-None Visible, but Matthews Anxiety: 2 Agitation: 2 Paroxysmal Sweats: No Perspiration Orientation: 0-Oriented Tacttile Disturbances: 1-Very Mild Itch/Numbness Auditory Disturbances: 0-None Visual Disturbances: 0-None Headache: 1-Very Mild CIWA-Ar Total Score: 8 [facility] Progress Note (SOAP) Subjective: alert,irritable,anxious,interrupted sleep,pain in the body Objective: 04/10/19 14:27 Vital Signs Temperature 98.1 F 04/10/19 13:24 Pulse Rate 67 04/10/19 13:24 Respiratory Rate 18 04/10/19 13:24 Blood Pressure 111/61 04/10/19 13:24 O2 Sat by Pulse Oximetry (%) 04/10/19 14:27 bgm is 102 Assessment: 04/10/19 14:27 withdrawal symptom Plan: continue detox valium regimen,discharge in am
[2019-04-10] MEDS: ACETAMINOPHEN 325 MG TABLET (FP) PO PRN (19:18)
[2019-04-10] MEDS: ATORVASTATIN CA 40 MG TABLET (FP) PO SCH (22:46)
[2019-04-10] MEDS ORDERED: diphenhydrAMINE HCL 25 MG CAPSULE (FP) PO ONE (22:46)
[2019-04-10] MEDS: THIAMINE HCL 100 MG TABLET (FP) PO SCH (22:46)
[2019-04-11] MEDS ORDERED: METHADONE HCL 40 MG DISPERSABLE TABLET ONE (04:56)
[2019-04-11] MEDS ORDERED: METHADONE HCL 10 MG TABLET ONE (04:56)
[2019-04-11] MEDS: METHADONE 80 MG, METHADONE 10 MG PO SCH (06:19)
[2019-04-11] MEDS: metFORMIN HCL 500 MG TABLET (FP) PO SCH (06:19)
--- NOTE | 2019-04-11 09:41 | DS ---
[facility] Detox Discharge Summary Admission Date: 04/07/19 Discharge Date: 04/11/19 - History Present History: Sedative Dependence, MMTP - Physical Exam Results Vital Signs: Vital Signs Temperature 98.1 F 04/11/19 05:54 Pulse Rate 57 L 04/11/19 05:54 Respiratory Rate 04/11/19 05:54 Blood Pressure 100/54 L 04/11/19 05:54 O2 Sat by Pulse Oximetry (%) Pertinent Admission Physical Exam Findings: pt arrived in withdrawals Vital Signs Temperature 98.1 F 04/11/19 05:54 Pulse Rate 57 L 04/11/19 05:54 Respiratory Rate 04/11/19 05:54 Blood Pressure 100/54 L 04/11/19 05:54 O2 Sat by Pulse Oximetry (%) Laboratory Tests 04/07/19 04/08/19 04/08/19 16:44 05:12 08:00 WBC 7.1 RBC 3.79 L Hgb 11.6 L Hct 34.5 L MCV 91.0 MCH 30.6 MCHC 33.6 RDW 14.6 Plt Count 255 MPV 8.7 Sodium Potassium Chloride Carbon Dioxide Anion Gap BUN Creatinine Est GFR (CKD-EPI)AfAm Est GFR (CKD-EPI)NonAf POC Glucometer 99 118 Random Glucose Calcium Total Bilirubin AST ALT Alkaline Phosphatase Total Protein Albumin RPR Titer 04/08/19 04/08/19 04/08/19 08:00 08:00 16:56 WBC RBC Hgb Hct MCV MCH MCHC RDW Plt Count MPV Sodium 137 Potassium 3.8 Chloride 100 Carbon Dioxide 34 H Anion Gap 3 L BUN 13.7 Creatinine 0.9 Est GFR (CKD-EPI)AfAm 111.83 Est GFR (CKD-EPI)NonAf 96.49 POC Glucometer 93 Random Glucose 110 H Calcium 9.1 Total Bilirubin 0.2 AST 17 ALT 18 Alkaline Phosphatase 103 Total Protein 6.8 Albumin 3.2 L RPR Titer Nonreactive 04/09/19 04/09/19 04/10/19 06:01 16:34 06:02 WBC RBC Hgb Hct MCV MCH MCHC RDW Plt Count MPV Sodium Potassium Chloride Carbon Dioxide Anion Gap BUN Creatinine Est GFR (CKD-EPI)AfAm Est GFR (CKD-EPI)NonAf POC Glucometer 122 126 102 Random Glucose Calcium Total Bilirubin AST ALT Alkaline Phosphatase Total Protein Albumin RPR Titer 04/10/19 04/11/19 16:28 06:17 WBC RBC Hgb Hct MCV MCH MCHC RDW Plt Count MPV Sodium Potassium Chloride Carbon Dioxide Anion Gap BUN Creatinine Est GFR (CKD-EPI)AfAm Est GFR (CKD-EPI)NonAf POC Glucometer 85 129 Random Glucose Calcium Total Bilirubin AST ALT Alkaline Phosphatase Total Protein Albumin RPR Titer pt aaox3 ambulating no acute distress no s/s of withdrawal - Treatment Hospital Course: Detox Protocol Followed, Detoxed Safely, Responded well, Discharged Condition Good, Rehab Referral Accepted - Medication Discharge Medications: Ambulatory Orders Aspirin [ASA -] 81 mg PO DAILY 09/01/17 Atorvastatin Ca [Lipitor] 40 mg PO HS 09/01/17 Lisinopril 2.5 mg PO DAILY 09/01/17 metFORMIN HCL [Metformin HCl] 500 mg PO BID 09/01/17 - Diagnosis (1) Nicotine dependence Current Visit: Yes Status: Chronic Qualifiers: Nicotine product type: cigarettes Substance use status: uncomplicated Qualified Code(s): F17.210 - Nicotine dependence, cigarettes, uncomplicated (2) Sedative, hypnotic or anxiolytic dependence with withdrawal, unspecified Current Visit: Yes Status: Chronic (3) Methadone maintenance therapy patient Current Visit: Yes Status: Chronic (4) Morbid obesity with BMI of 40.0-44.9, adult Current Visit: Yes Status: Chronic (5) Insomnia Current Visit: Yes Status: Acute Qualifiers: Insomnia type: unspecified Qualified Code(s): G47.00 - Insomnia, unspecified (6) Diabetes mellitus type 2 in obese Current Visit: No Status: Chronic (7) Hyperlipidemia Current Visit: No Status: Chronic Qualifiers: Hyperlipidemia type: unspecified Qualified Code(s): E78.5 - Hyperlipidemia , unspecified (8) Hypertension Current Visit: Yes Status: Chronic Qualifiers: Hypertension type: essential hypertension Qualified Code(s): I10 - Essential (primary) hypertension (9) Opioid dependence on agonist therapy Current Visit: No Status: Chronic - AMA Did Patient Leave Against Medical Advice: No
[2019-04-11 10:27] VITALS: BP 109/70; PULSE 61; TEMP 97.7
== END 2019-04-11 10:37 | disposition home or self-care (01) | DRG 773 ==
LOC: YASAS 10:30 → Y6N 12:42
PROVIDERS: ADMIT Allergy & Immunology; ATTEND Allergy & Immunology
PROC: HZ2ZZZZ Detoxification Services for Substance Abuse Treatment (ICD-10-PCS; principal; 2019-04-07)
DX: F13.230 Sedative, hypnotic or anxiolytic dependence with withdrawal, uncomplicated (principal); F11.20 Opioid dependence, uncomplicated; F17.210 Nicotine dependence, cigarettes, uncomplicated; F41.9 Anxiety disorder, unspecified; F32.9 Major depressive disorder, single episode, unspecified; I10 Essential (primary) hypertension; E11.9 Type 2 diabetes mellitus without complications; Z79.84 Long term (current) use of oral hypoglycemic drugs; E78.5 Hyperlipidemia, unspecified; Z68.41 Body mass index [BMI] 40.0-44.9, adult
CPT/HCPCS: 36415; 80053; 82962; 85027; 86593; Q2036

== ENCOUNTER 2023-08-31 10:01 | Inpatient (IN) | payer OTHER ==
[2023-08-31 10:49] VITALS: BMI 42.8
[2023-08-31] MEDS ORDERED: DICYCLOMINE HCL 10 MG CAPSULE PO PRN (11:22)
[2023-08-31] MEDS ORDERED: guaiFENesin 600 MG TABLET.ER (FP) PO PRN (11:22)
[2023-08-31] MEDS ORDERED: MAG HYDROX/AL HYDROX/SIMETH 30 ML UNIT-DOSE CUP PO PRN (11:22)
[2023-08-31] MEDS ORDERED: POLYETHYLENE GLYCOL (HEALTHYLAX) 3350 17 GM PACKET PO PRN (11:22)
[2023-08-31] MEDS ORDERED: BENZONATATE 200 MG CAPSULE PO PRN (11:22)
[2023-08-31] MEDS ORDERED: BISMUTH SUBSALICYLATE 262 MG/15 ML BTL PO PRN (11:22)
[2023-08-31] MEDS ORDERED: NICOTINE POLACRILEX 2 MG GUM BUC PRN (11:22)
[2023-08-31] MEDS ORDERED: LOPERAMIDE HCL 2 MG CAPSULE PO PRN (11:22)
[2023-08-31] MEDS ORDERED: NALOXONE HCL (KLOXXADO) 8 MG SPRAY NS PRN (11:22)
[2023-08-31] MEDS ORDERED: BENZOCAINE/MENTHOL (CHLORASEPTIC ) LOZENGE MM PRN (11:22)
[2023-08-31] MEDS ORDERED: MAGNESIUM HYDROX 2400MG/30ML ORAL SUSPENSION 30 ML CUP PO PRN (11:22)
[2023-08-31] MEDS ORDERED: NALOXONE HCL 0.4 MG/ML VIAL IM PRN (11:22)
[2023-08-31] MEDS: IBUPROFEN 600 MG TABLET (FP) PO PRN (13:53)
[2023-08-31] MEDS: ONDANSETRON *ODT* 4 MG TABLET SL PRN (18:30)
[2023-08-31] MEDS: METHOCARBAMOL 500 MG TABLET PO PRN (22:13)
[2023-08-31] MEDS: MELATONIN 5 MG TABLETS PO SCH (22:13)
[2023-08-31] MEDS: hydrOXYzine PAMOATE 25 MG CAPSULE (FP) PO PRN (22:13)
[2023-08-31] MEDS: THIAMINE HCL 100 MG TABLET (FP) PO SCH (22:13)
[2023-09-01] MEDS: IBUPROFEN 400 MG TABLET (FP) PO PRN (05:47)
[2023-09-01] MEDS ORDERED: methaDONE HCL 10 MG TABLET PO SCH (08:45)
[2023-09-01] MEDS: LISINOPRIL 5 MG TABLET PO SCH (09:17)
[2023-09-01] MEDS: metFORMIN HCL 500 MG TABLET (FP) PO SCH (09:18)
[2023-09-01] MEDS: ASPIRIN 81 MG CHEWABLE TABLETS PO SCH (09:18)
[2023-09-01] MEDS: chlordiazePOXIDE HCL 25 MG CAPSULE PO SCH (10:10)
[2023-09-01] MEDS: PRENATAL VITAMINS W/ FOLIC ACID TABLET (FP) PO SCH (10:10)
[2023-09-01 11:32] LABS: HEMATOCRIT 38.2 % (35.4-49); HEMOGLOBIN 12.1 GM/dL (11.7-16.9); MCH 28.6 pg (25.7-33.7); MCHC 31.8 g/dl (32.0-35.9); MEAN PLT VOLUME 8.7 fl (7.5-11.1); PLATELET COUNT 222 10^3/uL (134-434); POTASSIUM 3.7 mmol/L (3.5-5.1); RBC 4.24 M/mm3 (4.00-5.60); WHITE BLOOD COUNT 5.9 K/mm3 (4.0-10.0)
[2023-09-01 11:44] LABS: ALBUMIN 3.4 g/dl (3.4-5.0); CALCIUM 9.8 mg/dL (8.5-10.1)
[2023-09-01 11:45] LABS: BLOOD UREA NITROGEN 12.2 mg/dL (7-18)
[2023-09-01 11:49] LABS: BILIRUBIN,TOTAL 0.3 mg/dL (0.2-1); TOT PROT 7.3 g/dl (6.4-8.2)
[2023-09-01 12:47] LABS: HIV INTERPRETATION NEGATIVE (NEGATIVE)
[2023-09-01] MEDS: chlordiazePOXIDE HCL 25 MG CAPSULE PO PRN (15:24)
[2023-09-01] MEDS: ACETAMINOPHEN 325 MG TABLET (FP) PO PRN (20:11)
[2023-09-02] MEDS: diazePAM 5 MG TABLET PO SCH (11:51)
[2023-09-03] MEDS ORDERED: chlordiazePOXIDE HCL 25 MG CAPSULE PO SCH (05:00)
[2023-09-04] MEDS ORDERED: chlordiazePOXIDE HCL 10 MG CAPSULE PO PRN
[2023-09-04] MEDS ORDERED: chlordiazePOXIDE HCL 10 MG CAPSULE PO SCH (05:00)
[2023-09-04] MEDS: diazePAM 5 MG TABLET PO SCH (05:42)
[2023-09-05] MEDS ORDERED: chlordiazePOXIDE HCL 10 MG CAPSULE PO SCH (05:00)
[2023-09-05] MEDS: diazePAM 5 MG TABLET PO SCH (05:16)
[2023-09-05] MEDS: diazePAM 5 MG TABLET PO PRN (11:12)
[2023-09-06] MEDS ORDERED: chlordiazePOXIDE HCL 10 MG CAPSULE PO ONE (05:00)
[2023-09-06] MEDS: diazePAM 5 MG TABLET PO ONE (05:42)
[2023-09-06 09:21] VITALS: TEMP 97.6
[2023-09-06 09:22] VITALS: BP 139/69; PULSE 51; RESP 20
== END 2023-09-06 12:31 | disposition home or self-care (01) | DRG 773 ==
LOC: YASAS 10:01 → Y3N 12:15
PROVIDERS: ADMIT Allergy & Immunology; ATTEND Surgery
PROC: HZ2ZZZZ Detoxification Services for Substance Abuse Treatment (ICD-10-PCS; principal; 2023-08-31)
DX: F13.230 Sedative, hypnotic or anxiolytic dependence with withdrawal, uncomplicated (principal); F11.20 Opioid dependence, uncomplicated; F17.290 Nicotine dependence, other tobacco product, uncomplicated; I10 Essential (primary) hypertension; E78.5 Hyperlipidemia, unspecified; E11.9 Type 2 diabetes mellitus without complications; Z79.84 Long term (current) use of oral hypoglycemic drugs
CPT/HCPCS: 36415; 80053; 80305; 80307; 82962; 85027; 86780; 87389; 93005; 93010; Q0162

== ENCOUNTER 2023-11-07 18:35 | Inpatient (IN) | payer OTHER ==
[2023-11-07 19:28] VITALS: BMI 43.9
[2023-11-07] MEDS ORDERED: P-EPHED 60MG/TRIPROLIDI 2.5MG TABLET PO PRN (20:45)
[2023-11-07] MEDS ORDERED: LOPERAMIDE HCL 2 MG CAPSULE PO PRN (20:45)
[2023-11-07] MEDS ORDERED: IBUPROFEN 400 MG TABLET (FP) PO PRN (20:45)
[2023-11-07] MEDS ORDERED: NICOTINE POLACRILEX 2 MG GUM BUC PRN (20:45)
[2023-11-07] MEDS ORDERED: guaiFENesin 600 MG TABLET.ER (FP) PO PRN (20:45)
[2023-11-07] MEDS ORDERED: DICYCLOMINE HCL 10 MG CAPSULE PO PRN (20:45)
[2023-11-07] MEDS ORDERED: BENZOCAINE/MENTHOL (CHLORASEPTIC ) LOZENGE MM PRN (20:45)
[2023-11-07] MEDS ORDERED: MAGNESIUM HYDROX 2400MG/30ML ORAL SUSPENSION 30 ML CUP PO PRN (20:45)
[2023-11-07] MEDS ORDERED: NICOTINE POLACRILEX 2 MG LOZENGE BC PRN (20:45)
[2023-11-07] MEDS ORDERED: NALOXONE (NARCAN) HCL 4 MG/0.1 ML SPRAY NS PRN (20:45)
[2023-11-07] MEDS ORDERED: POLYETHYLENE GLYCOL (HEALTHYLAX) 3350 17 GM PACKET PO PRN (20:45)
[2023-11-07] MEDS ORDERED: NALOXONE HCL 0.4 MG/ML VIAL IM PRN (20:45)
[2023-11-07] MEDS ORDERED: BENZONATATE 200 MG CAPSULE PO PRN (20:45)
[2023-11-07] MEDS ORDERED: MELATONIN 5 MG TABLETS ONE (21:46)
[2023-11-07] MEDS: THIAMINE 100 MG TABLET PO SCH (22:05)
[2023-11-07] MEDS: MELATONIN 5 MG TABLETS PO SCH (22:05)
[2023-11-07] MEDS ORDERED: ACETAMINOPHEN 325 MG TABLET (FP) ONE (22:11)
[2023-11-08] MEDS: METHOCARBAMOL 500 MG TABLET PO PRN (06:03)
[2023-11-08] MEDS: metFORMIN HCL 500 MG TABLET (FP) PO SCH (06:03)
[2023-11-08] MEDS: IBUPROFEN 600 MG TABLET (FP) PO PRN (06:04)
[2023-11-08] MEDS: methaDONE HCL 40 MG DISPERSABLE TABLET PO SCH (07:18)
[2023-11-08] MEDS: diazePAM 5 MG TABLET PO SCH ×2 (08:11→09:03)
[2023-11-08] MEDS: ASPIRIN 81 MG CHEWABLE TABLETS PO SCH (09:04)
[2023-11-08] MEDS: PRENATAL VITAMINS W/ FOLIC ACID TABLET (FP) PO SCH (09:04)
[2023-11-08] MEDS: LISINOPRIL 5 MG TABLET PO SCH (09:04)
[2023-11-08] MEDS ORDERED: LISINOPRIL 5 MG TABLET PO SCH (10:00)
[2023-11-08] MEDS: ONDANSETRON *ODT* 4 MG TABLET SL PRN (12:49)
[2023-11-08 16:45] LABS: HEMATOCRIT 35.3 % (35.4-49); HEMOGLOBIN 11.6 GM/dL (11.7-16.9); MCH 29.6 pg (25.7-33.7); MCHC 32.9 g/dl (32.0-35.9); MEAN CELL VOLUME 89.8 fl (80-96); MEAN PLT VOLUME 8.5 fl (7.5-11.1); PLATELET COUNT 268 10^3/uL (134-434); RBC 3.93 M/mm3 (4.00-5.60); WHITE BLOOD COUNT 8.9 K/mm3 (4.0-10.0)
[2023-11-08 16:56] LABS: ALBUMIN 3.5 g/dl (3.4-5.0); CALCIUM 9.6 mg/dL (8.5-10.1)
[2023-11-08 16:57] LABS: BLOOD UREA NITROGEN 10.8 mg/dL (7-18)
[2023-11-08 17:00] LABS: CREATININE 0.8 mg/dL (0.55-1.3)
[2023-11-08 17:01] LABS: BILIRUBIN,TOTAL 0.2 mg/dL (0.2-1); TOT PROT 7.5 g/dl (6.4-8.2)
[2023-11-08] MEDS: BENZOCAINE 20 % GEL TUBE MM PRN (20:49)
[2023-11-08] MEDS: ACETAMINOPHEN 325 MG TABLET (FP) PO PRN (22:13)
[2023-11-09] MEDS: diazePAM 5 MG TABLET PO SCH (05:45)
[2023-11-09] MEDS ORDERED: diazePAM 5 MG TABLET PO SCH (06:00)
[2023-11-09] MEDS: MAG HYDROX/AL HYDROX/SIMETH 30 ML UNIT-DOSE CUP PO PRN (16:49)
[2023-11-10] MEDS: diazePAM 5 MG TABLET PO SCH (05:29)
[2023-11-10] MEDS: diazePAM 5 MG TABLET PO PRN (09:15)
[2023-11-10] MEDS: cloNIDine HCL 0.1 MG TABLET PO ONE (14:09)
[2023-11-10] MEDS: BISMUTH SUBSALICYLATE 524 MG/30 ML PO PRN (18:19)
[2023-11-11] MEDS: diazePAM 5 MG TABLET PO ONE (06:21)
[2023-11-11 14:18] VITALS: RESP 18
[2023-11-11 16:57] VITALS: BP 149/68; PULSE 48; TEMP 97.3
== END 2023-11-11 17:50 | disposition other institution (70) | DRG 773 ==
LOC: YASAS 18:35 → Y3N 21:34
PROVIDERS: ADMIT Allergy & Immunology; ATTEND Surgery
PROC: HZ2ZZZZ Detoxification Services for Substance Abuse Treatment (ICD-10-PCS; principal; 2023-11-07)
DX: F13.230 Sedative, hypnotic or anxiolytic dependence with withdrawal, uncomplicated (principal); F11.20 Opioid dependence, uncomplicated; I10 Essential (primary) hypertension; E11.9 Type 2 diabetes mellitus without complications; Z79.84 Long term (current) use of oral hypoglycemic drugs
CPT/HCPCS: 36415; 80053; 80305; 82962; 85027; 86780; Q0162

== ENCOUNTER 2023-11-11 17:36 | Inpatient (IN) | payer OTHER ==
[2023-11-11] MEDS ORDERED: guaiFENesin 600 MG TABLET.ER (FP) PO PRN (20:10)
[2023-11-11] MEDS ORDERED: MAGNESIUM HYDROX 2400MG/30ML ORAL SUSPENSION 30 ML CUP PO PRN (20:10)
[2023-11-11] MEDS ORDERED: NICOTINE POLACRILEX 2 MG LOZENGE BC PRN (20:10)
[2023-11-11] MEDS ORDERED: LOPERAMIDE HCL 2 MG CAPSULE PO PRN (20:10)
[2023-11-11] MEDS ORDERED: NICOTINE POLACRILEX 2 MG GUM BUC PRN (20:10)
[2023-11-11] MEDS ORDERED: P-EPHED 60MG/TRIPROLIDI 2.5MG TABLET PO PRN (20:10)
[2023-11-11] MEDS ORDERED: POLYETHYLENE GLYCOL (HEALTHYLAX) 3350 17 GM PACKET PO PRN (20:10)
[2023-11-11] MEDS ORDERED: BENZONATATE 200 MG CAPSULE PO PRN (20:10)
[2023-11-11] MEDS ORDERED: BENZOCAINE/MENTHOL (CHLORASEPTIC ) LOZENGE MM PRN (20:10)
[2023-11-11] MEDS: THIAMINE 100 MG TABLET PO SCH (22:24)
[2023-11-11] MEDS: MELATONIN 5 MG TABLETS PO SCH (22:24)
[2023-11-12] MEDS: IBUPROFEN 600 MG TABLET (FP) PO PRN (05:11)
[2023-11-12] MEDS: methaDONE HCL 40 MG DISPERSABLE TABLET PO SCH (05:11)
[2023-11-12] MEDS: metFORMIN HCL 500 MG TABLET (FP) PO SCH (06:33)
[2023-11-12] MEDS: hydrOXYzine PAMOATE 25 MG CAPSULE (FP) PO PRN (06:34)
[2023-11-12] MEDS: METHOCARBAMOL 500 MG TABLET PO PRN (06:34)
[2023-11-12] MEDS: MAG HYDROX/AL HYDROX/SIMETH 30 ML UNIT-DOSE CUP PO PRN (09:41)
[2023-11-12] MEDS: ASPIRIN 81 MG CHEWABLE TABLETS PO SCH (10:28)
[2023-11-12] MEDS: LISINOPRIL 5 MG TABLET PO SCH (10:28)
[2023-11-12] MEDS: PRENATAL VITAMINS W/ FOLIC ACID TABLET (FP) PO SCH (10:28)
[2023-11-12] MEDS ORDERED: BISMUTH SUBSALICYLATE 262 MG/15 ML BTL PO PRN (13:33)
[2023-11-12] MEDS: LISINOPRIL 5 MG TABLET PO ONE (13:34)
[2023-11-13] MEDS: LISINOPRIL 10 MG TABLET PO SCH (10:04)
[2023-11-14] MEDS: IBUPROFEN 400 MG TABLET (FP) PO PRN (09:24)
[2023-11-14] MEDS: amLODIPine BESYLATE 5 MG TABLET (FP) PO SCH (14:07)
[2023-11-14] MEDS: AMOX TR/POT CLAV 875MG/125MG TABLETS (FP) PO SCH (18:40)
[2023-11-15] MEDS: TAMSULOSIN HCL 0.4 MG CAP PO SCH (07:36)
[2023-11-15] MEDS: ACETAMINOPHEN 325 MG TABLET (FP) PO PRN (21:31)
[2023-11-16] MEDS: BENZOCAINE 20 % GEL TUBE MM PRN (10:32)
[2023-11-17] MEDS ORDERED: INSULIN (NOVOLOG) ASPART 100 UNITS/ML 10ML VIAL ONE (07:42)
[2023-11-23] MEDS: amLODIPine BESYLATE 5 MG TABLET (FP) PO ONE (16:28)
[2023-11-24] MEDS: methaDONE HCL 40 MG DISPERSABLE TABLET PO SCH (06:22)
[2023-11-24] MEDS: amLODIPine BESYLATE 10 MG TABLET (FP) PO SCH (09:44)
[2023-11-24] MEDS: PANTOPRAZOLE 20 MG TABLET PO SCH (15:58)
[2023-11-27 06:40] VITALS: TEMP 97.4
[2023-11-28 10:18] VITALS: BP 143/82; PULSE 62; RESP 19
== END 2023-11-28 10:22 | disposition home or self-care (01) | DRG 772 ==
LOC: YASAS 17:36 → Y3NR 18:11 → Y3E 11-13 13:03
PROVIDERS: ADMIT Allergy & Immunology; ATTEND Psychiatry & Neurology Pain Medicine
PROC: HZ42ZZZ Group Counseling for Substance Abuse Treatment, Cognitive-Behavioral (ICD-10-PCS; principal; 2023-11-11)
DX: F13.20 Sedative, hypnotic or anxiolytic dependence, uncomplicated (principal); F11.20 Opioid dependence, uncomplicated; F17.210 Nicotine dependence, cigarettes, uncomplicated; E78.5 Hyperlipidemia, unspecified; G47.00 Insomnia, unspecified; I10 Essential (primary) hypertension; E11.9 Type 2 diabetes mellitus without complications; Z79.84 Long term (current) use of oral hypoglycemic drugs; K08.89 Other specified disorders of teeth and supporting structures; K21.9 Gastro-esophageal reflux disease without esophagitis; R60.0 Localized edema; Z56.0 Unemployment, unspecified; Z59.00 Homelessness unspecified
CPT/HCPCS: 82962; 87811; 93005; 93010

== ENCOUNTER 2023-12-26 15:54 | Inpatient (IN) | payer OTHER ==
[2023-12-26 16:26] VITALS: BMI 39.9
[2023-12-26] MEDS ORDERED: P-EPHED 60MG/TRIPROLIDI 2.5MG TABLET PO PRN (18:13)
[2023-12-26] MEDS ORDERED: LOPERAMIDE HCL 2 MG CAPSULE PO PRN (18:13)
[2023-12-26] MEDS ORDERED: NALOXONE (NARCAN) HCL 4 MG/0.1 ML SPRAY NS PRN (18:13)
[2023-12-26] MEDS ORDERED: NALOXONE HCL 0.4 MG/ML VIAL IM PRN (18:13)
[2023-12-26] MEDS ORDERED: BENZOCAINE/MENTHOL (CHLORASEPTIC ) LOZENGE MM PRN (18:13)
[2023-12-26] MEDS ORDERED: BENZONATATE 200 MG CAPSULE PO PRN (18:13)
[2023-12-26] MEDS ORDERED: guaiFENesin 600 MG TABLET.ER (FP) PO PRN (18:13)
[2023-12-26] MEDS: ACETAMINOPHEN 325 MG TABLET (FP) PO PRN (19:00)
[2023-12-26] MEDS ORDERED: ACETAMINOPHEN 325 MG TABLET (FP) ONE (19:08)
[2023-12-26] MEDS: LISINOPRIL 10 MG TABLET PO ONE (19:57)
[2023-12-26] MEDS: GABAPENTIN 100 MG CAPSULE PO SCH (21:56)
[2023-12-26] MEDS: ATORVASTATIN CA 40 MG TABLET (FP) PO SCH (21:56)
[2023-12-26] MEDS: MELATONIN 5 MG TABLETS PO SCH (21:56)
[2023-12-26] MEDS: THIAMINE 100 MG TABLET PO SCH (21:56)
[2023-12-26] MEDS: DABIGATRAN ETEXILATE MESYLATE 150 MG CAPSULE PO SCH (23:22)
[2023-12-27] MEDS: MAG HYDROX/AL HYDROX/SIMETH 30 ML UNIT-DOSE CUP PO PRN (06:01)
[2023-12-27] MEDS: metFORMIN HCL 500 MG TABLET (FP) PO SCH (06:44)
[2023-12-27] MEDS: predniSONE 20 MG TABLET (UD) PO SCH (09:53)
[2023-12-27] MEDS: AZITHROMYCIN 250 MG TABLET PO SCH (09:53)
[2023-12-27] MEDS: LISINOPRIL 5 MG TABLET PO SCH (09:53)
[2023-12-27] MEDS: GABAPENTIN 300 MG CAPSULE PO SCH (09:54)
[2023-12-27] MEDS: PRENATAL VITAMINS W/ FOLIC ACID TABLET (FP) PO SCH (09:54)
[2023-12-27] MEDS: methaDONE HCL 10 MG TABLET PO SCH (10:46)
[2023-12-27 11:38] LABS: POTASSIUM 4.3 mmol/L (3.5-5.1)
[2023-12-27 11:52] LABS: ALBUMIN 3.6 g/dl (3.4-5.0); CALCIUM 10.3 mg/dL (8.5-10.1)
[2023-12-27 11:53] LABS: BLOOD UREA NITROGEN 17.8 mg/dL (7-18)
[2023-12-27 11:57] LABS: BILIRUBIN,TOTAL 0.5 mg/dL (0.2-1); TOT PROT 7.6 g/dl (6.4-8.2)
[2023-12-27] MEDS: ONDANSETRON *ODT* 4 MG TABLET SL ONE (13:31)
[2023-12-27 14:44] LABS: HEMOGLOBIN 14.1 GM/dL (11.7-16.9); MCH 29.8 pg (25.7-33.7); MCHC 33.5 g/dl (32.0-35.9); MEAN CELL VOLUME 88.7 fl (80-96); MEAN PLT VOLUME 8.8 fl (7.5-11.1); PLATELET COUNT 287 10^3/uL (134-434); RBC 4.74 M/mm3 (4.00-5.60); RDW 14.9 % (11.9-15.9)
[2023-12-28] MEDS: AMOX TR/POT CLAV 875MG/125MG TABLETS (FP) PO SCH (17:02)
[2023-12-29] MEDS: BENZOCAINE 20 % GEL TUBE MM PRN (19:37)
[2023-12-29] MEDS: MELATONIN 5 MG TABLETS PO SCH (21:28)
[2023-12-29] MEDS: TOLNAFTATE 1% CREAM 15 GM TUBE TP SCH (21:30)
[2024-01-01] MEDS: LISINOPRIL 5 MG TABLET PO ONE ×2 (07:35→11:22)
[2024-01-01] MEDS: BENZOCAINE 20 % GEL TUBE MM PRN (19:02)
[2024-01-02] MEDS: LISINOPRIL 10 MG TABLET PO SCH (10:00)
[2024-01-04] MEDS: BISACODYL 5 MG TABLET.DR (FP) PO PRN (09:54)
[2024-01-04] MEDS: SUVOREXANT 10 MG TABLET PO PRN (21:20)
[2024-01-04] MEDS: LISINOPRIL 10 MG TABLET PO SCH (21:21)
[2024-01-05] MEDS: GABAPENTIN 300 MG CAPSULE PO ONE (13:12)
[2024-01-05] MEDS: MAGNESIUM HYDROX 2400MG/30ML ORAL SUSPENSION 30 ML CUP PO PRN (13:13)
[2024-01-05] MEDS: GABAPENTIN 300 MG CAPSULE PO SCH (21:25)
[2024-01-06] MEDS: POLYETHYLENE GLYCOL (HEALTHYLAX) 3350 17 GM PACKET PO PRN (10:02)
[2024-01-06] MEDS: DOCUSATE SODIUM 100 MG CAPSULE (FP) PO PRN (10:02)
[2024-01-06] MEDS ORDERED: SUVOREXANT 10 MG TABLET PO PRN (22:00)
[2024-01-08] MEDS: SUVOREXANT 10 MG TABLET PO PRN (21:22)
[2024-01-08] MEDS: HYDROCHLOROTHIAZIDE 12.5 MG CAPSULE (FP) PO SCH (21:23)
[2024-01-08] MEDS: LACTULOSE 20 GM/30 ML UDC (FOR ORAL USE ONLY) PO PRN (23:13)
[2024-01-09] MEDS: HYDROCHLOROTHIAZIDE 12.5 MG CAPSULE (FP) PO ONE (07:27)
[2024-01-09] MEDS: ASPIRIN 81 MG CHEWABLE TABLETS PO SCH (09:56)
[2024-01-09] MEDS: SIMETHICONE 80 MG TAB.CHEW (FP) PO PRN (16:27)
[2024-01-09] MEDS ORDERED: SUVOREXANT 10 MG TABLET PO PRN (22:00)
[2024-01-10] MEDS: cloNIDine HCL 0.1 MG TABLET PO PRN (06:27)
[2024-01-10] MEDS: SUVOREXANT 15 MG TABLET PO PRN (21:20)
[2024-01-12] MEDS: AMOXICILLIN 500 MG CAPSULE (FP) PO SCH (13:29)
[2024-01-12] MEDS: DOCUSATE NA 100 MG/10 ML UNIT-DOSE CUPS PO ONE (13:43)
[2024-01-12] MEDS: SUVOREXANT 15 MG TABLET PO PRN (22:00)
[2024-01-12] MEDS: SENNOSIDES 8.6MG TABLET (FP) PO SCH (22:01)
[2024-01-15] MEDS: BENZOCAINE 20 % GEL TUBE MM PRN (16:40)
[2024-01-15] MEDS: SUVOREXANT 15 MG TABLET PO PRN (21:16)
[2024-01-17] MEDS: SUVOREXANT 15 MG TABLET PO PRN (21:17)
[2024-01-19] MEDS: SUVOREXANT 15 MG TABLET PO PRN (21:14)
[2024-01-21] MEDS ORDERED: SUVOREXANT 15 MG TABLET PO PRN (22:00)
[2024-01-23 06:48] VITALS: TEMP 97.7
[2024-01-23 08:52] VITALS: BP 146/69; PULSE 61; RESP 16
[2024-01-23] MEDS ORDERED: SUVOREXANT 15 MG TABLET PO PRN (22:00)
== END 2024-01-23 10:52 | disposition home or self-care (01) | DRG 772 ==
LOC: YASAS 15:54 → Y3NR 18:52 → Y3W 12-27 11:26
PROVIDERS: ADMIT Allergy & Immunology; ATTEND Psychiatry & Neurology Pain Medicine
PROC: HZ42ZZZ Group Counseling for Substance Abuse Treatment, Cognitive-Behavioral (ICD-10-PCS; principal; 2023-12-26)
DX: F13.20 Sedative, hypnotic or anxiolytic dependence, uncomplicated (principal); F11.20 Opioid dependence, uncomplicated; F17.210 Nicotine dependence, cigarettes, uncomplicated; F19.982 Other psychoactive substance use, unspecified with psychoactive substance-induced sleep disorder; I10 Essential (primary) hypertension; R60.0 Localized edema; I73.9 Peripheral vascular disease, unspecified; E11.9 Type 2 diabetes mellitus without complications; E78.5 Hyperlipidemia, unspecified; G47.00 Insomnia, unspecified; K59.00 Constipation, unspecified; K08.89 Other specified disorders of teeth and supporting structures; B35.1 Tinea unguium; I26.99 Other pulmonary embolism without acute cor pulmonale; K21.9 Gastro-esophageal reflux disease without esophagitis; E66.01 Morbid (severe) obesity due to excess calories; Z68.39 Body mass index [BMI] 39.0-39.9, adult; Z79.01 Long term (current) use of anticoagulants; Z79.84 Long term (current) use of oral hypoglycemic drugs; Z56.0 Unemployment, unspecified; Z59.01 Sheltered homelessness
CPT/HCPCS: 36415; 80053; 80305; 82962; 85027; 87811; 93005; 93010; Q0162

== ENCOUNTER 2024-02-07 13:18 | Inpatient (IN) | payer OTHER ==
[2024-02-07 14:40] VITALS: BMI 43.5
[2024-02-07] MEDS ORDERED: DICYCLOMINE HCL 10 MG CAPSULE PO PRN (16:53)
[2024-02-07] MEDS ORDERED: LOPERAMIDE HCL 2 MG CAPSULE PO PRN (16:53)
[2024-02-07] MEDS ORDERED: IBUPROFEN 400 MG TABLET (FP) PO PRN (16:53)
[2024-02-07] MEDS ORDERED: NALOXONE (NARCAN) HCL 4 MG/0.1 ML SPRAY NS PRN (16:53)
[2024-02-07] MEDS ORDERED: guaiFENesin 600 MG TABLET.ER (FP) PO PRN (16:53)
[2024-02-07] MEDS ORDERED: BENZONATATE 200 MG CAPSULE PO PRN (16:53)
[2024-02-07] MEDS ORDERED: MAGNESIUM HYDROX 2400MG/30ML ORAL SUSPENSION 30 ML CUP PO PRN (16:53)
[2024-02-07] MEDS ORDERED: POLYETHYLENE GLYCOL (HEALTHYLAX) 3350 17 GM PACKET PO PRN (16:53)
[2024-02-07] MEDS ORDERED: NALOXONE HCL 0.4 MG/ML VIAL IM PRN (16:53)
[2024-02-07] MEDS: METHOCARBAMOL 500 MG TABLET PO PRN (18:40)
[2024-02-07] MEDS: hydrOXYzine PAMOATE 25 MG CAPSULE (FP) PO PRN (18:40)
[2024-02-07] MEDS: IBUPROFEN 600 MG TABLET (FP) PO PRN (18:40)
[2024-02-07] MEDS: THIAMINE 100 MG TABLET PO SCH (22:24)
[2024-02-07] MEDS: MELATONIN 5 MG TABLETS PO SCH (22:24)
[2024-02-07] MEDS: ACETAMINOPHEN 325 MG TABLET (FP) PO PRN (22:25)
[2024-02-08] MEDS: MAG HYDROX/AL HYDROX/SIMETH 30 ML UNIT-DOSE CUP PO PRN (06:03)
[2024-02-08] MEDS: PRENATAL VITAMINS W/ FOLIC ACID TABLET (FP) PO SCH (10:30)
[2024-02-08] MEDS: DABIGATRAN ETEXILATE MESYLATE 150 MG CAPSULE PO SCH (10:32)
[2024-02-08] MEDS: GABAPENTIN 300 MG CAPSULE PO SCH (10:35)
[2024-02-08] MEDS: LISINOPRIL 10 MG TABLET PO SCH (10:35)
[2024-02-08] MEDS ORDERED: methaDONE HCL 10 MG TABLET PO SCH (11:00)
[2024-02-08] MEDS: methaDONE HCL 10 MG TABLET PO SCH (11:42)
[2024-02-08] MEDS ORDERED: LORazepam 1 MG TABLET PO PRN (12:23)
[2024-02-08] MEDS: cloNIDine HCL 0.1 MG TABLET PO SCH (14:55)
[2024-02-08 15:05] LABS: HEMATOCRIT 37.3 % (35.4-49); HEMOGLOBIN 12.2 GM/dL (11.7-16.9); MCH 29.8 pg (25.7-33.7); MCHC 32.8 g/dl (32.0-35.9); MEAN CELL VOLUME 90.9 fl (80-96); MEAN PLT VOLUME 8.1 fl (7.5-11.1); PLATELET COUNT 241 10^3/uL (134-434); WHITE BLOOD COUNT 7.7 K/mm3 (4.0-10.0)
[2024-02-08 15:09] LABS: CHLORIDE 103 mmol/L (98-107); POTASSIUM 4.4 mmol/L (3.5-5.1); SODIUM 136 mmol/L (136-145)
[2024-02-08 15:13] LABS: ALBUMIN 3.6 g/dl (3.4-5.0); ANION GAP 6 mmol/L (4-13); CO2 27 mmol/L (21-32)
[2024-02-08 15:14] LABS: GLUCOSE,RANDOM 78 mg/dL (74-106)
[2024-02-08 15:16] LABS: SGPT/ALT 33 U/L (13-61)
[2024-02-08 15:17] LABS: CREATININE 0.8 mg/dL (0.55-1.3); SGOT/AST 27 U/L (15-37)
[2024-02-08 15:18] LABS: BILIRUBIN,TOTAL 0.7 mg/dL (0.2-1); TOT PROT 7.4 g/dl (6.4-8.2)
[2024-02-08 15:19] LABS: ALK PHOS 81 U/L (45-117)
[2024-02-08] MEDS: LORazepam 2 MG TABLET PO SCH (17:21)
[2024-02-08] MEDS: MELATONIN 5 MG TABLETS PO SCH (22:17)
[2024-02-09] MEDS: metFORMIN HCL 500 MG TABLET (FP) PO SCH (06:27)
[2024-02-09] MEDS: methaDONE HCL 10 MG TABLET PO ONE ×3 (10:52→12:14)
[2024-02-09] MEDS: ONDANSETRON *ODT* 4 MG TABLET SL PRN (10:58)
[2024-02-09] MEDS: BENZOCAINE/MENTHOL (CHLORASEPTIC ) LOZENGE MM PRN (17:34)
[2024-02-09] MEDS: FLUTICASONE PROP 0.05% 16 GM NASAL SPRAY NS PRN (22:14)
[2024-02-10] MEDS ORDERED: cloNIDine HCL 0.1 MG TABLET PO PRN
[2024-02-10] MEDS: LORazepam 1 MG TABLET PO SCH (05:23)
[2024-02-10] MEDS ORDERED: methaDONE HCL 10 MG TABLET PO ONE (10:00)
[2024-02-10] MEDS ORDERED: methaDONE HCL 10 MG TABLET PO SCH (10:00)
[2024-02-11] MEDS ORDERED: LORazepam 0.5 MG TABLET PO PRN
[2024-02-11] MEDS: LORazepam 0.5 MG TABLET PO SCH (05:37)
[2024-02-11] MEDS ORDERED: methaDONE HCL 10 MG TABLET PO ONE (10:00)
[2024-02-11] MEDS: BISMUTH SUBSALICYLATE 524 MG/30 ML PO PRN (16:03)
[2024-02-11] MEDS: traZODone HCL 50 MG TABLET (FP) PO PRN (22:13)
[2024-02-12] MEDS: LORazepam 0.5 MG TABLET PO ONE (05:29)
[2024-02-12] MEDS ORDERED: methaDONE HCL 10 MG TABLET PO ONE (10:00)
[2024-02-12] MEDS: HYDROCHLOROTHIAZIDE 12.5 MG CAPSULE (FP) PO SCH (15:45)
[2024-02-13] MEDS ORDERED: P-EPHED 60MG/TRIPROLIDI 2.5MG TABLET PO PRN (21:56)
[2024-02-13] MEDS ORDERED: NICOTINE POLACRILEX 2 MG LOZENGE BC PRN (22:02)
[2024-02-15] MEDS ORDERED: methaDONE HCL 10 MG TABLET PO SCH (09:00)
[2024-02-15] MEDS: methaDONE 80 MG, methaDONE 10 MG PO SCH (09:33)
[2024-02-20 14:18] VITALS: BP 108/70; PULSE 68; RESP 18; TEMP 98.9
== END 2024-02-20 15:06 | disposition other institution (70) | DRG 773 ==
LOC: YASAS 13:18 → Y6N 17:38
PROVIDERS: ADMIT Allergy & Immunology; ATTEND Family Medicine Addiction Medicine
PROC: HZ2ZZZZ Detoxification Services for Substance Abuse Treatment (ICD-10-PCS; principal; 2024-02-07)
DX: F10.230 Alcohol dependence with withdrawal, uncomplicated (principal); F11.20 Opioid dependence, uncomplicated; F17.210 Nicotine dependence, cigarettes, uncomplicated; F19.282 Other psychoactive substance dependence with psychoactive substance-induced sleep disorder; U07.1 COVID-19; I10 Essential (primary) hypertension; E78.5 Hyperlipidemia, unspecified; E11.9 Type 2 diabetes mellitus without complications; Z79.84 Long term (current) use of oral hypoglycemic drugs; E66.01 Morbid (severe) obesity due to excess calories; Z68.41 Body mass index [BMI] 40.0-44.9, adult; Z86.711 Personal history of pulmonary embolism; Z79.02 Long term (current) use of antithrombotics/antiplatelets; Z59.00 Homelessness unspecified; Z56.0 Unemployment, unspecified
CPT/HCPCS: 36415; 80053; 80305; 80307; 82962; 85027; 86780; 87635; 87811; 93005; 93010; Q0162

== ENCOUNTER 2024-02-20 14:55 | Inpatient (IN) | payer OTHER ==
[2024-02-20] MEDS ORDERED: POLYETHYLENE GLYCOL (HEALTHYLAX) 3350 17 GM PACKET PO PRN (17:39)
[2024-02-20] MEDS ORDERED: MAGNESIUM HYDROX 2400MG/30ML ORAL SUSPENSION 30 ML CUP PO PRN (17:39)
[2024-02-20] MEDS ORDERED: BENZOCAINE/MENTHOL (CHLORASEPTIC ) LOZENGE MM PRN (17:39)
[2024-02-20] MEDS ORDERED: guaiFENesin 600 MG TABLET.ER (FP) PO PRN (17:39)
[2024-02-20] MEDS ORDERED: NALOXONE HCL 0.4 MG/ML VIAL IM PRN (17:39)
[2024-02-20] MEDS ORDERED: BENZONATATE 200 MG CAPSULE PO PRN (17:39)
[2024-02-20] MEDS ORDERED: IBUPROFEN 400 MG TABLET (FP) PO PRN (17:39)
[2024-02-20] MEDS ORDERED: NALOXONE (NARCAN) HCL 4 MG/0.1 ML SPRAY NS PRN (17:39)
[2024-02-20] MEDS: IBUPROFEN 600 MG TABLET (FP) PO PRN (19:14)
[2024-02-20] MEDS: DABIGATRAN ETEXILATE MESYLATE 150 MG CAPSULE PO SCH (22:42)
[2024-02-20] MEDS: THIAMINE 100 MG TABLET PO SCH (22:42)
[2024-02-20] MEDS: SENNOSIDES 8.6MG TABLET (FP) PO SCH (22:42)
[2024-02-20] MEDS: GABAPENTIN 300 MG CAPSULE PO SCH (22:42)
[2024-02-20] MEDS: MELATONIN 5 MG TABLETS PO SCH (22:42)
[2024-02-20] MEDS: SUVOREXANT 10 MG TABLET PO ONE (23:42)
[2024-02-21] MEDS ORDERED: methaDONE HCL 10 MG TABLET PO SCH (06:00)
[2024-02-21] MEDS: metFORMIN HCL 500 MG TABLET (FP) PO SCH (06:58)
[2024-02-21] MEDS: methaDONE 80 MG, methaDONE 10 MG PO SCH (06:58)
[2024-02-21] MEDS: INSULIN ASPART SLIDING SCALE (NOVOLOG) 1 VIAL SQ SCH (07:06)
[2024-02-21] MEDS: LISINOPRIL 20 MG TABLET PO SCH (10:48)
[2024-02-21] MEDS: HYDROCHLOROTHIAZIDE 12.5 MG CAPSULE (FP) PO SCH (10:48)
[2024-02-21] MEDS: PRENATAL VITAMINS W/ FOLIC ACID TABLET (FP) PO SCH (10:48)
[2024-02-21 13:49] LABS: HEMATOCRIT 39.8 % (35.4-49); HEMOGLOBIN 12.6 GM/dL (11.7-16.9); MCH 29.2 pg (25.7-33.7); MCHC 31.7 g/dl (32.0-35.9); MEAN CELL VOLUME 92.2 fl (80-96); MEAN PLT VOLUME 8.6 fl (7.5-11.1); PLATELET COUNT 297 10^3/uL (134-434); RBC 4.32 M/mm3 (4.00-5.60); RDW 14.9 % (11.9-15.9)
[2024-02-21] MEDS: BENZOCAINE 20 % GEL TUBE MM PRN (13:57)
[2024-02-21 14:49] LABS: CHLORIDE 100 mmol/L (98-107); POTASSIUM 4.4 mmol/L (3.5-5.1); SODIUM 137 mmol/L (136-145)
[2024-02-21 14:54] LABS: ALBUMIN 3.4 g/dl (3.4-5.0); CALCIUM 10.1 mg/dL (8.5-10.1)
[2024-02-21 14:55] LABS: ANION GAP 6 mmol/L (4-13); BLOOD UREA NITROGEN 16.8 mg/dL (7-18); CO2 31 mmol/L (21-32); GLUCOSE,RANDOM 141 mg/dL (74-106); SGPT/ALT 27 U/L (13-61)
[2024-02-21 14:57] LABS: ALK PHOS 81 U/L (45-117)
[2024-02-21 14:58] LABS: CREATININE 0.9 mg/dL (0.55-1.3); SGOT/AST 21 U/L (15-37)
[2024-02-21 14:59] LABS: BILIRUBIN,TOTAL 0.4 mg/dL (0.2-1); TOT PROT 7.1 g/dl (6.4-8.2)
[2024-02-21 15:18] LABS: SYPHILIS W/ RPR CONF NON-REACTIVE (NONREACTIVE)
[2024-02-21] MEDS: AMOX TR/POT CLAV 500MG/125MG TABLETS (FP) PO SCH (17:20)
[2024-02-21] MEDS: MAG HYDROX/AL HYDROX/SIMETH 30 ML UNIT-DOSE CUP PO PRN (17:56)
[2024-02-21] MEDS: SUVOREXANT 10 MG TABLET PO ONE (22:47)
[2024-02-23] MEDS: SUVOREXANT 10 MG TABLET PO PRN (00:55)
[2024-02-23] MEDS: ACETAMINOPHEN 325 MG TABLET (FP) PO PRN (09:14)
[2024-02-23] MEDS: hydrOXYzine PAMOATE 25 MG CAPSULE (FP) PO PRN (09:37)
[2024-02-25 09:34] LABS: URINE APPEARANCE CLEAR; URINE BILIRUBIN NEGATIVE (NEGATIVE); URINE COLOR YELLOW; URINE GLUCOSE (UA) NEGATIVE (NEGATIVE); URINE KETONE NEGATIVE (NEGATIVE); URINE LEUK ESTERASE NEGATIVE (NEGATIVE); URINE NITRITE NEGATIVE (NEGATIVE); URINE PROTEIN NEGATIVE (NEGATIVE); URINE UROBILINOGEN 0.2 mg/dL (0.2-1.0)
[2024-02-28] MEDS ORDERED: methaDONE HCL 10 MG TABLET PO SCH (06:30)
[2024-02-28] MEDS: methaDONE 80 MG, methaDONE 10 MG PO SCH (06:37)
[2024-02-28] MEDS: LOPERAMIDE HCL 2 MG CAPSULE PO PRN (17:17)
[2024-03-02] MEDS: SUVOREXANT 15 MG TABLET PO PRN (21:44)
[2024-03-04] MEDS: SUVOREXANT 15 MG TABLET PO PRN (21:34)
[2024-03-08] MEDS ORDERED: NALOXONE (NYS OPIOID OVERDOSE PROGRAM) 4 MG/0.1 ML SPRAY NS PRN (14:49)
[2024-03-08] MEDS: NALOXONE (NYS OPIOID OVERDOSE PROGRAM) 4 MG/0.1 ML SPRAY NS ONE (16:08)
[2024-03-09] MEDS: SUVOREXANT 15 MG TABLET PO PRN (21:11)
[2024-03-13] MEDS ORDERED: methaDONE HCL 10 MG TABLET PO SCH (06:00)
[2024-03-13] MEDS: methaDONE 80 MG, methaDONE 10 MG PO SCH (06:18)
[2024-03-14] MEDS: SUVOREXANT 15 MG TABLET PO PRN (21:41)
[2024-03-18] MEDS: SUVOREXANT 15 MG TABLET PO PRN (21:30)
[2024-03-20] MEDS: HYDROCHLOROTHIAZIDE 12.5 MG CAPSULE (FP) PO ONE (16:47)
[2024-03-21] MEDS: HYDROCHLOROTHIAZIDE 25 MG TABLET (FP) PO SCH (10:25)
[2024-03-21] MEDS: SUVOREXANT 15 MG TABLET PO PRN (21:12)
[2024-03-23] MEDS: SUVOREXANT 10 MG TABLET PO ONE (21:14)
[2024-03-24] MEDS: SUVOREXANT 10 MG TABLET PO ONE (21:45)
[2024-03-25 06:45] VITALS: RESP 17; TEMP 97.1
[2024-03-25 09:10] VITALS: BP 126/77; PULSE 66
== END 2024-03-25 09:41 | disposition home or self-care (01) | DRG 772 ==
LOC: YASAS 14:55 → Y3NR 14:56 → Y3W 02-26 11:59 → Y3NR 02-29 18:13 → Y3W 02-29 18:15
PROVIDERS: ADMIT Psychiatry & Neurology Pain Medicine; ATTEND Psychiatry & Neurology Pain Medicine
PROC: HZ42ZZZ Group Counseling for Substance Abuse Treatment, Cognitive-Behavioral (ICD-10-PCS; principal; 2024-02-20)
DX: F10.20 Alcohol dependence, uncomplicated (principal); F11.20 Opioid dependence, uncomplicated; F41.9 Anxiety disorder, unspecified; U07.1 COVID-19; G47.00 Insomnia, unspecified; E78.5 Hyperlipidemia, unspecified; E11.9 Type 2 diabetes mellitus without complications; Z79.84 Long term (current) use of oral hypoglycemic drugs; M54.50 Low back pain, unspecified; G89.29 Other chronic pain; R60.0 Localized edema; K02.9 Dental caries, unspecified; Z86.711 Personal history of pulmonary embolism; Z79.02 Long term (current) use of antithrombotics/antiplatelets
CPT/HCPCS: 36415; 80053; 80307; 81003; 82962; 85027; 86780; 86803; 87635; 87811

== ENCOUNTER 2024-04-20 11:05 | Inpatient (IN) | payer OTHER ==
[2024-04-20 11:55] VITALS: BMI 41.8
[2024-04-20] MEDS ORDERED: DICYCLOMINE HCL 10 MG CAPSULE PO PRN (16:06)
[2024-04-20] MEDS ORDERED: MAGNESIUM HYDROX 2400MG/30ML ORAL SUSPENSION 30 ML CUP PO PRN (16:06)
[2024-04-20] MEDS ORDERED: BENZOCAINE/MENTHOL (CHLORASEPTIC ) LOZENGE MM PRN (16:06)
[2024-04-20] MEDS ORDERED: LOPERAMIDE HCL 2 MG CAPSULE PO PRN (16:06)
[2024-04-20] MEDS ORDERED: BENZONATATE 200 MG CAPSULE PO PRN (16:06)
[2024-04-20] MEDS ORDERED: IBUPROFEN 600 MG TABLET (FP) PO PRN (16:06)
[2024-04-20] MEDS ORDERED: NALOXONE (NARCAN) HCL 4 MG/0.1 ML SPRAY NS PRN (16:06)
[2024-04-20] MEDS ORDERED: IBUPROFEN 400 MG TABLET (FP) PO PRN (16:06)
[2024-04-20] MEDS ORDERED: guaiFENesin 600 MG TABLET.ER (FP) PO PRN (16:06)
[2024-04-20] MEDS ORDERED: BISMUTH SUBSALICYLATE 524 MG/30 ML PO PRN (16:06)
[2024-04-20] MEDS ORDERED: POLYETHYLENE GLYCOL (HEALTHYLAX) 3350 17 GM PACKET PO PRN (16:06)
[2024-04-20] MEDS ORDERED: FLUTICASONE PROP 0.05% 16 GM NASAL SPRAY NS PRN (17:20)
[2024-04-20] MEDS: MAG HYDROX/AL HYDROX/SIMETH 30 ML UNIT-DOSE CUP PO PRN (17:53)
[2024-04-20] MEDS: ACETAMINOPHEN 325 MG TABLET (FP) PO PRN (20:13)
[2024-04-20] MEDS: MELATONIN 5 MG TABLETS PO SCH (21:44)
[2024-04-20] MEDS: RIVAROXABAN 15 MG TABLET PO SCH (21:44)
[2024-04-20] MEDS: hydrOXYzine PAMOATE 25 MG CAPSULE (FP) PO PRN (21:45)
[2024-04-20] MEDS: METHOCARBAMOL 500 MG TABLET PO PRN (21:45)
[2024-04-20] MEDS: THIAMINE 100 MG TABLET PO SCH (21:45)
[2024-04-20] MEDS: ATORVASTATIN CA 40 MG TABLET (FP) PO SCH (21:45)
[2024-04-20] MEDS: CLOTRIMAZOLE 1% CREAM TP SCH (21:46)
[2024-04-20] MEDS: BUDESONIDE/FORMETEROL FUMARATE 160/4.5 mcg INHALER IH SCH (21:46)
[2024-04-20] MEDS ORDERED: MELATONIN 5 MG TABLETS PO SCH (22:00)
[2024-04-21] MEDS: metFORMIN HCL 500 MG TABLET (FP) PO SCH (07:22)
[2024-04-21] MEDS ORDERED: ALBUTEROL SO4 HFA INHALER IH PRN (08:38)
[2024-04-21] MEDS: methaDONE HCL 10 MG TABLET PO SCH (09:27)
[2024-04-21] MEDS: LISINOPRIL 20 MG TABLET PO SCH (09:35)
[2024-04-21] MEDS: methylPREDNISolone 4 MG TABLET PO ONE (09:35)
[2024-04-21] MEDS: PRENATAL VITAMINS W/ FOLIC ACID TABLET (FP) PO SCH (09:36)
[2024-04-21] MEDS ORDERED: methylPREDNISolone 4 MG TABLET PO SCH (10:00)
[2024-04-21] MEDS: diazePAM 5 MG TABLET PO SCH (10:10)
[2024-04-21] MEDS: SUVOREXANT 10 MG TABLET PO PRN (22:31)
[2024-04-22] MEDS: diazePAM 5 MG TABLET PO PRN (01:21)
[2024-04-22] MEDS: methylPREDNISolone 4 MG TABLET PO ONE (10:23)
[2024-04-23] MEDS: diazePAM 5 MG TABLET PO SCH (05:19)
[2024-04-23] MEDS: methylPREDNISolone 4 MG TABLET PO ONE (10:20)
[2024-04-23] MEDS: FLU VACCINE (FLULAVAL) PF 45 MCG/0.5 ML SYRINGE 2024-2025 IM ONE (12:15)
[2024-04-24] MEDS: diazePAM 5 MG TABLET PO SCH (05:40)
[2024-04-24 06:11] VITALS: RESP 17
[2024-04-24] MEDS: ONDANSETRON *ODT* 4 MG TABLET SL PRN (06:37)
[2024-04-24] MEDS: NALOXONE (NYS OPIOID OVERDOSE PROGRAM) 4 MG/0.1 ML SPRAY NS SCH (09:18)
[2024-04-24 09:33] VITALS: BP 144/72; PULSE 60; TEMP 97.7
[2024-04-24] MEDS: methylPREDNISolone 4 MG TABLET PO ONE (10:24)
[2024-04-25] MEDS ORDERED: diazePAM 5 MG TABLET PO ONE (06:00)
[2024-04-25] MEDS ORDERED: methylPREDNISolone 4 MG TABLET PO ONE (10:00)
[2024-04-26] MEDS ORDERED: methylPREDNISolone 4 MG TABLET PO ONE (10:00)
== END 2024-04-24 10:27 | disposition home or self-care (01) | DRG 773 ==
LOC: YASAS 11:05 → Y3N 16:48
PROVIDERS: ADMIT Surgery; ATTEND Surgery
PROC: HZ2ZZZZ Detoxification Services for Substance Abuse Treatment (ICD-10-PCS; principal; 2024-04-20)
DX: F10.230 Alcohol dependence with withdrawal, uncomplicated (principal); F13.230 Sedative, hypnotic or anxiolytic dependence with withdrawal, uncomplicated; F11.20 Opioid dependence, uncomplicated; F17.210 Nicotine dependence, cigarettes, uncomplicated; F19.280 Other psychoactive substance dependence with psychoactive substance-induced anxiety disorder; F19.282 Other psychoactive substance dependence with psychoactive substance-induced sleep disorder; F41.9 Anxiety disorder, unspecified; F32.A Depression, unspecified; E78.5 Hyperlipidemia, unspecified; I10 Essential (primary) hypertension; J45.909 Unspecified asthma, uncomplicated; E11.9 Type 2 diabetes mellitus without complications; Z79.84 Long term (current) use of oral hypoglycemic drugs; Z86.711 Personal history of pulmonary embolism; Z79.01 Long term (current) use of anticoagulants
CPT/HCPCS: 80305; 82962; 90656; 93005; 93010; G0008; Q0162